=== PATIENT | male | born 1970 | race Caucasian/White ===

== ENCOUNTER 2019-07-09 09:36 | Inpatient (IN) | payer OTHER ==
[2019-07-09 10:15] VITALS: BMI 25.2
--- NOTE | 2019-07-09 10:59 | HP ---
COWS - Scale Resting Pulse: 0= [place] 80 or Below Sweatin= Chills/Flushing Restless Observation: 1= Difficult to Sit Still Pupil Size: 1= Pupils >than Normal Bone or Joint Aches: 2= Severe Diffuse Aches Runny Nose/ Eye Tearin= Runny Nose/Eyes GI Upset > 30mins: 3= Vomiting/Diarrhea Tremor Observation: 2= Slight Tremor Visible Yawning Observation: 2= >3x During Session Anxiety or Irritability: 2=Irritable/Anxious Goose Flesh Skin: 0=Smooth Skin COWS Score: 16 CIWA Score Nausea/Vomitin Muscle Tremors: 3 Anxiety: 3 Agitation: 3 Paroxysmal Sweats: 1-Minimal Palms Moist Orientation: 0-Oriented Tacttile Disturbances: 1-Very Mild Itch/Numbness Auditory Disturbances: 0-None Visual Disturbances: 0-None Headache: 2-Mild CIWA-Ar Total Score: 15 - Admission Criteria OASAS Guidelines: Admission for Medically Managed Detox: Requires at least one of the followin. CIWA greater than 12 2. Seizures within the past 24 hours 3. Delirium tremens within the past 24 hours 4. Hallucinations within the past 24 hours 5. Acute intervention needed for co occurring medical disorder 6. Acute intervention needed for co occurring psychiatric disorder 7. Severe withdrawal that cannot be handled at a lower level of care (continued vomiting, continued diarrhea, abnormal vital signs) requiring intravenous medication and/or fluids 8. Admitting History and Physical - Admission Chief Complaint: i need help to stop using heoin and cocaine and alcohol History of Present Illness: this 49 years old male with heroin and cocaine dependence,seeking help,detox from heroin and cocaine,withdrawal symptom,alcohol dependence, syncope alcohol related denied seizure homeless nicotine dependence weight loss dehydration longest sobriety 10 years last detox in 2018 ,did not recall the facility anxiety,depression,insomnia pain in left hip 2 months,has been walking with cane History Source: Patient Limitations to Obtaining History: No Limitations - Past Medical History 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 Psych: Yes: Anxiety, Depression Musculoskeletal: Yes: Other (pain in left hip ambulation with cane) - Smoking History Smoking history: Current every day smoker Have you smoked in the past 12 months: Yes Aproximately how many cigarettes per day: 40 - Alcohol/Substance Use Hx Alcohol Use: Yes History of Substance Use: reports: Cocaine, Heroin - Social History Usual Living Arrangement: Yes: Other (homeless) ADL: Support Services Occupation: disability History of Recent Travel: No Admission ROS [facility] - [facility] Chief Complaint: i need help to stop using heroin,alcohol,cocaine Allergies/Adverse Reactions: Allergies Allergy/AdvReac Type Severity Reaction Status Date / Time No Known Allergies Allergy Verified 07/09/19 10:06 History of Present Illness: this 49 years old with heroin,cocaine,alcohol dependence seeking detox, withdrawal symptom, last detox in 2018 unknown facility weight loss nicotine dependence pain in the left hip ambulation with cane longest sobriety 10 years homeless anxiety,depression,insomnia may go to rehab after detox Exam Limitations: No Limitations - Ebola screening Have you traveled outside of the country in the last 21 days: No Have you had contact with anyone from an Ebola affected area: No Do you have a fever: No - Review of Systems Constitutional: Chills, Loss of Appetite, Malaise, Night Sweats, Changes in sleep, Weakness, Unintentional Wgt. Loss EENT: reports: Tearing, Nose Congestion Respiratory: reports: No Symptoms reported Cardiac: reports: No Symptoms Reported GI: reports: Diarrhea, Nausea, Poor Appetite, Vomiting, Abdominal cramping : reports: No Symptoms Reported Musculoskeletal: reports: No Symptoms Reported, Back Pain, Gout, Joint Pain Integumentary: reports: Dryness Neuro: reports: Headache, Tremors Endocrine: reports: No Symptoms Reported Hematology: reports: No Symptoms Reported Psychiatric: reports: No Sypmtoms Reported, Judgement Intact, Mood/Affect Appropiate, Orientated x3, Agitated, Depressed Other Systems: Reviewed and Negative Patient History - Patient Medical History Hx Anemia: No Hx Asthma: No Hx Chronic Obstructive Pulmonary Disease (COPD): No Hx Cancer: No Hx Cardiac Disorders: No Hx Congestive Heart Failure: No Hx Hypertension: No Hx Hypercholesterolemia: No Hx Pacemaker: No HX Cerebrovascular Accident: No Hx Seizures: No Hx Dementia: No Hx Diabetes: No Hx Gastrointestinal Disorders: No Hx Liver Disease: No Hx Genitourinary Disorders: No Hx Sexually Transmitted Disorders: No Hx Renal Disease (ESRD): No Hx Thyroid Disease: No Hx Human Immunodeficiency Virus (HIV): No (last 05/26 negative) Hx Hepatitis C: No Hx Depression: Yes (anxiety) Hx Suicide Attempt: No Hx Bipolar Disorder: No Hx Schizophrenia: No Other Medical History: no sucidal,no homicidal - Patient Surgical History Past Surgical History: No - PPD History Previous Implant?: Yes Documented Results: Negative w/o proof Implanted On Prior [facility] Admission?: No PPD to be Administered?: Yes - Smoking Cessation Smoking history: Current every day smoker Have you smoked in the past 12 months: Yes Aproximately how many cigarettes per day: 40 Cigars Per Day: 0 Hx Chewing Tobacco Use: No Initiated information on smoking cessation: Yes 'Breaking Loose' booklet given: 07/09/19 - Substance & Tx. History Hx Alcohol Use: Yes Hx Substance Use: Yes Substance Use Type: Alcohol, Cocaine, Heroin Hx Substance Use Treatment: Yes (2018 did not recall facility) - Substances abused Alcohol Substance route: Oral Frequency: Daily Amount used: 1 pint of bacardi Age of first use: 13 Date of last use: 07/07/19 Heroin Substance route: Injection Frequency: Daily Amount used: 2 1/2 bundle Age of first use: 14 Date of last use: 07/08/19 Cocaine Substance route: Injection Frequency: Daily Amount used: 200$ Age of first use: 13 Date of last use: 07/08/19 Admission Physical Exam S - Vital Signs Vital Signs: Vital Signs - 24 hr 07/09/19 10:06 Temperature 98.9 F Pulse Rate 70 Respiratory 20 Rate Blood Pressure 118/68 - Physical General Appearance: Yes: Moderate Distress, Tremorous, Irritable, Sweating, Anxious HEENTM: Yes: Normal ENT Inspection, PATIENCE, Pharynx Normal Respiratory: Yes: Lungs Clear, Normal Breath Sounds, No Respiratory Distress Neck: Yes: Within Normal Limits, Supple, Trachea in good position Breast: Yes: Breast Exam Deferred Cardiology: Yes: Within Normal Limits, Regular Rhythm, Regular Rate, S1, S2 Abdominal: Yes: Within Normal Limits, Normal Bowel Sounds, Non Tender, Flat, Soft Genitourinary: Yes: Within Normal Limits Back: Yes: Muscle Spasm Musculoskeletal: Yes: full range of Motion, Back pain, Joint Stiffness, Muscle Pain Extremities: Yes: Within Normal Limits, Tremors 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, Fully Oriented, Alert, Motor Strength 5/5 Integumentary: Yes: Dry Lymphatic: Yes: Within Normal Limits - Diagnostic (1) Opioid dependence with withdrawal Current Visit: Yes Status: Acute (2) Alcohol dependence with uncomplicated withdrawal Current Visit: Yes Status: Acute (3) Cocaine dependence Current Visit: Yes Status: Acute (4) IVDU (intravenous drug user) Current Visit: Yes Status: Acute (5) Weight loss Current Visit: Yes Status: Acute (6) Insomnia secondary to depression with anxiety Current Visit: Yes Status: Acute (7) Pain in left hip Current Visit: Yes Status: Acute (8) Use of cane as ambulatory aid Current Visit: Yes Status: Acute (9) Syncope Current Visit: Yes Status: Acute (10) Dehydration Current Visit: Yes Status: Acute Cleared for Admission [facility] - Detox or Rehab [facility] Level of Care: Medically Managed Detox Regimen/Protocol: Methadone/Librium Breathalyzer - Breathalyzer Breathalyzer: 0 Urine Drug Screen - Test Device Lot number: [id number] Expiration date: 02/04/21 - Control Is test valid?: Yes - Results Drug screen NEGATIVE: No Urine drug screen results: JOVANI-Cocaine, MOP-Opiates Inpatient Rehab Admission - Rehab Decision to Admit Inpatient rehab admission?: No
[2019-07-09] MEDS ORDERED: MAG HYDROX/AL HYDROX/SIMETH 30 ML UNIT-DOSE CUP PO PRN (11:14)
[2019-07-09] MEDS ORDERED: BISMUTH SUBSALICYLATE 524 MG/30 ML UD PO PRN (11:14)
[2019-07-09] MEDS ORDERED: MAGNESIUM CITRATE 300 ML BOTTLE PO PRN (11:14)
[2019-07-09] MEDS ORDERED: cloNIDine HCL 0.1 MG TABLET PO PRN (11:14)
[2019-07-09] MEDS ORDERED: MAGNESIUM HYDROX 2400MG/30ML ORAL SUSPENSION 30 ML CUP PO PRN (11:14)
[2019-07-09] MEDS ORDERED: MENTHOL/PHENOL 1 EACH UD MM PRN (11:14)
[2019-07-09] MEDS ORDERED: ACETAMINOPHEN 325 MG TABLET (FP) PO PRN ×2 (11:14)
[2019-07-09] MEDS ORDERED: NICOTINE POLACRILEX 2 MG GUM BUC PRN (11:14)
[2019-07-09] MEDS ORDERED: METHADONE HCL 10 MG TABLET (FOR DETOX USE ONLY) PO ONE (11:14)
[2019-07-09] MEDS ORDERED: hydrOXYzine PAMOATE 25 MG CAPSULE (FP) PO PRN (11:14)
[2019-07-09] MEDS ORDERED: chlordiazePOXIDE HCL 25 MG CAPSULE PO PRN (11:14)
[2019-07-09] MEDS: NICOTINE 21 MG/24 HOURS TOPICAL PATCH TD SCH (12:31)
[2019-07-09 15:00] LABS: HEMOGLOBIN 10.3 GM/dL (11.7-16.9); MCH 28.9 pg (25.7-33.7); MCHC 32.1 g/dl (32.0-35.9); MEAN CELL VOLUME 89.9 fl (80-96); MEAN PLT VOLUME 8.1 fl (7.5-11.1); PLATELET COUNT 329 K/MM3 (134-434); RBC 3.56 M/mm3 (4.00-5.60); RDW 15.2 % (11.9-15.9); WHITE BLOOD COUNT 6.6 K/mm3 (4.0-10.0)
--- NOTE | 2019-07-09 15:14 | EKG ---
Test Reason : Blood Pressure : / mmHG Vent. Rate : 067 BPM Atrial Rate : 067 BPM P-R Int : 200 ms QRS Dur : 094 ms QT Int : 444 ms P-R-T Axes : 059 074 048 degrees QTc Int : 469 ms NORMAL SINUS RHYTHM VOLTAGE CRITERIA FOR LEFT VENTRICULAR HYPERTROPHY T WAVE ABNORMALITY, CONSIDER ANTERIOR ISCHEMIA PROLONGED QT ABNORMAL ECG NO PREVIOUS ECGS AVAILABLE Confirmed by RONALD LEMON MD ([id number]) on 07/09/2019 3:14:30 PM Referred By: Confirmed By:RONALD LEMON MD
[2019-07-09 15:18] LABS: ALBUMIN 2.6 g/dl (3.4-5.0); BILIRUBIN,TOTAL 0.2 mg/dL (0.2-1); CALCIUM 8.5 mg/dL (8.5-10.1); CREATININE 0.8 mg/dL (0.55-1.3); POTASSIUM 3.2 mmol/L (3.5-5.1); TOT PROT 7.2 g/dl (6.4-8.2)
[2019-07-09] MEDS: chlordiazePOXIDE HCL 25 MG CAPSULE PO SCH ×2 (17:20→22:32)
[2019-07-09] MEDS: THIAMINE HCL 100 MG TABLET (FP) PO SCH (22:32)
[2019-07-10] MEDS: chlordiazePOXIDE HCL 25 MG CAPSULE PO SCH ×4 (05:22→22:19)
--- NOTE | 2019-07-10 09:13 | CONSULT ---
[facility] Psychiatric Consult - Data Date of interview: 07/10/19 Admission source: [facility] Identifying data: Patient is a 49 year old single male, without children, unemployed, and homeless. This is patient's first admission to detox at [facility]. Patient admitted to for alcohol, cocaine, and opiate dependence. Substance Abuse History: Smoking Cessation. Smoking history: Current every day smoker. Have you smoked in the past 12 months: Yes. Aproximately how many cigarettes per day: 40. Cigars Per Day: 0. Hx Chewing Tobacco Use: No. Initiated information on smoking cessation: Yes. 'Breaking Loose' booklet given : 07/09/19. - Substance & Tx. History. Hx Alcohol Use: Yes. Hx Substance Use : Yes. Substance Use Type: Alcohol, Cocaine, Heroin. Hx Substance Use Treatment: Yes (2018 did not recall facility). - Substances abused. Alcohol. Substance route: Oral. Frequency: Daily. Amount used: 1 pint of bacardi. Age of first use: 13. Date of last use: 07/07/19. Heroin. Substance route: Injection. Frequency: Daily. Amount used: 2 1/2 bundle. Age of first use: 14. Date of last use: 07/08/19. Cocaine. Substance route: Injection. Frequency: Daily. Amount used: 200$. Age of first use: 13. Date of last use: 07/08/19 Medical History: denies. Psychiatric History: Patient denies history of psychiatric hospitalizations, outpatient care and suicide attempt. Patient presents as lethargic and fatigue throughout assessment. Physical/Sexual Abuse/Trauma History: denies. Mental Status Exam - Mental Status Exam Alert and Oriented to: Time, Place, Person Cognitive Function: Good Patient Appearance: Unkempt Mood: Withdrawn Affect: Mood Congruent Patient Behavior: Fatigued Speech Pattern: Appropriate Voice Loudness: Mildly Soft/Quiet Thought Process: Goal Oriented Thought Disorder: Not Present Hallucinations: Denies Suicidal Ideation: Denies Homicidal Ideation: Denies Insight/Judgement: Poor Sleep: Poorly Appetite: Fair Muscle strength/Tone: Normal Gait/Station: Normal Psychiatric Findings - Problem List ([place] 1, 2,3) (1) Alcohol dependence with uncomplicated withdrawal Current Visit: Yes Status: Acute (2) Cocaine dependence Current Visit: Yes Status: Acute (3) Opioid dependence with withdrawal Current Visit: Yes Status: Acute (4) Substance induced mood disorder Current Visit: No Status: Suspected - Initial Treatment Plan Initial Treatment Plan: Psychoeducation provided. Detoxification in progress. Observation.
[2019-07-10] MEDS ORDERED: METHADONE HCL 5 MG TABLET (FOR DETOX USE ONLY) ONE (09:17)
[2019-07-10] MEDS ORDERED: METHADONE HCL 10 MG TABLET (FOR DETOX USE ONLY) ONE (09:18)
[2019-07-10] MEDS ORDERED: METHADONE (DETOX) 20 MG, METHADONE (DETOX) 5 MG PO ONE (10:00)
[2019-07-10] MEDS: PRENATAL VITAMINS W/ FOLIC ACID TABLET (FP) PO SCH (11:00)
[2019-07-10] MEDS: NICOTINE 21 MG/24 HOURS TOPICAL PATCH TD SCH (11:02)
[2019-07-10] MEDS ORDERED: FLU VACCINE QUAD 60 MCG/0.5 ML (MDV 19-20) IM ONE (12:00)
--- NOTE | 2019-07-10 14:31 | PN ---
S CIWA - CIWA Score Nausea/Vomitin-Mild Nausea/No Vomiting Muscle Tremors: 2 Anxiety: 2 Agitation: 1-Slight > Activity Paroxysmal Sweats: 3 Orientation: 0-Oriented Tacttile Disturbances: 2-Mild Itch/Numbness/Burn Auditory Disturbances: 0-None Visual Disturbances: 0-None Headache: 0-None Present CIWA-Ar Total Score: 11 BHS COWS - Scale Resting Pulse: 0= [place] 80 or Below Sweatin=Flushed/Facial Moisture Restless Observation: 1= Difficult to Sit Still Pupil Size: 1= Pupils >than Normal Bone or Joint Aches: 2= Severe Diffuse Aches Runny Nose/ Eye Tearin= None GI Upset > 30mins: 0= None Tremor Observation of Outstretched Hands: 2= Slight Tremor Visible Yawning Observation: 0= None Anxiety or Irritability: 1=Feels Anxious/Irritable Goose Flesh Skin: 0=Smooth Skin COWS Score: 9 S Progress Note (SOAP) Subjective: interrupted sleep, sweats, shakes, lbp, Objective: 07/10/19 14:24 pt aox3 lying in bed uses a cane to ambulate 07/10/19 14:24 Vital Signs Temperature 98.6 F 07/10/19 09:26 Pulse Rate 78 07/10/19 09:26 Respiratory Rate 18 07/10/19 09:26 Blood Pressure 123/78 07/10/19 09:26 O2 Sat by Pulse Oximetry (%) Laboratory Tests 07/09/19 07/09/19 07/09/19 11:20 11:20 11:20 WBC 6.6 RBC 3.56 L Hgb 10.3 L Hct 32.0 L MCV 89.9 MCH 28.9 MCHC 32.1 RDW 15.2 Plt Count 329 MPV 8.1 Sickle Cell Screen Sodium 143 Potassium 3.2 L Chloride 109 H Carbon Dioxide 29 Anion Gap 5 L BUN 17.0 Creatinine 0.8 Est GFR (CKD-EPI)AfAm 119.88 Est GFR (CKD-EPI)NonAf 103.43 Random Glucose 123 H Calcium 8.5 Total Bilirubin 0.2 AST 15 ALT 18 Alkaline Phosphatase 116 Total Protein 7.2 Albumin 2.6 L RPR Titer HIV 1&2 Antibody Screen Negative HIV P24 Antigen Negative 07/09/19 07/09/19 11:20 11:20 WBC RBC Hgb Hct MCV MCH MCHC RDW Plt Count MPV Sickle Cell Screen Negative Sodium Potassium Chloride Carbon Dioxide Anion Gap BUN Creatinine Est GFR (CKD-EPI)AfAm Est GFR (CKD-EPI)NonAf Random Glucose Calcium Total Bilirubin AST ALT Alkaline Phosphatase Total Protein Albumin RPR Titer Nonreactive HIV 1&2 Antibody Screen HIV P24 Antigen pt aox3 in nad, lying in bed Assessment: 07/10/19 14:36 withdrawal sx's Plan: cont. detox increrase fluids motrin prn
[2019-07-10] MEDS: THIAMINE HCL 100 MG TABLET (FP) PO SCH (22:19)
[2019-07-10] MEDS: MELATONIN 5 MG TABLETS PO PRN (22:20)
[2019-07-11] MEDS: chlordiazePOXIDE HCL 25 MG CAPSULE PO SCH ×4 (07:05→23:59)
[2019-07-11] MEDS ORDERED: METHADONE HCL 10 MG TABLET (FOR DETOX USE ONLY) PO ONE (10:00)
--- NOTE | 2019-07-11 10:57 | PN ---
[facility] CIWA - CIWA Score Nausea/Vomitin-Mild Nausea/No Vomiting Muscle Tremors: 4-Moderate,w/Arms Extend Anxiety: 2 Agitation: 2 Paroxysmal Sweats: 1-Minimal Palms Moist Orientation: 0-Oriented Tacttile Disturbances: 0-None Auditory Disturbances: 0-None Visual Disturbances: 0-None Headache: 1-Very Mild CIWA-Ar Total Score: 11 BHS COWS - Scale Resting Pulse: 1= [place] 81-100 Sweatin= Chills/Flushing Restless Observation: 1= Difficult to Sit Still Pupil Size: 1= Pupils >than Normal Bone or Joint Aches: 1= Mild Discomfort Runny Nose/ Eye Tearin= Nasal Congestion GI Upset > 30mins: 1= Stomach Cramp Tremor Observation of Outstretched Hands: 1= Tremor [place], Not Seen Yawning Observation: 1= 1-2x During Session Anxiety or Irritability: 1=Feels Anxious/Irritable Goose Flesh Skin: 0=Smooth Skin COWS Score: 10 [facility] Progress Note (SOAP) Subjective: pt states he feels like he is in withdrawal- here for heroin and cocaine and alcohol use O: Vital Signs - 24 hr 07/10/19 07/10/19 07/11/19 17:22 21:45 03:37 Temperature 97.9 F 98.1 F Pulse Rate 73 84 Respiratory 18 18 18 Rate Blood Pressure 131/71 123/72 07/11/19 07/11/19 07:14 09:54 Temperature 97.9 F 99.1 F Pulse Rate 51 L 74 Respiratory 18 16 Rate Blood Pressure 121/71 104/59 L Laboratory Tests 07/09/19 07/09/19 07/09/19 11:20 11:20 11:20 WBC 6.6 RBC 3.56 L Hgb 10.3 L Hct 32.0 L MCV 89.9 MCH 28.9 MCHC 32.1 RDW 15.2 Plt Count 329 MPV 8.1 Sickle Cell Screen Sodium 143 Potassium 3.2 L Chloride 109 H Carbon Dioxide 29 Anion Gap 5 L BUN 17.0 Creatinine 0.8 Est GFR (CKD-EPI)AfAm 119.88 Est GFR (CKD-EPI)NonAf 103.43 Random Glucose 123 H Calcium 8.5 Total Bilirubin 0.2 AST 15 ALT 18 Alkaline Phosphatase 116 Total Protein 7.2 Albumin 2.6 L RPR Titer HIV 1&2 Antibody Screen Negative HIV P24 Antigen Negative 07/09/19 07/09/19 11:20 11:20 WBC RBC Hgb Hct MCV MCH MCHC RDW Plt Count MPV Sickle Cell Screen Negative Sodium Potassium Chloride Carbon Dioxide Anion Gap BUN Creatinine Est GFR (CKD-EPI)AfAm Est GFR (CKD-EPI)NonAf Random Glucose Calcium Total Bilirubin AST ALT Alkaline Phosphatase Total Protein Albumin RPR Titer Nonreactive HIV 1&2 Antibody Screen HIV P24 Antigen anemia- Hct 32 low albumin A/P: AUD- continue alcohol detox protocol prn meds for symptom treatment
[2019-07-11] MEDS: PRENATAL VITAMINS W/ FOLIC ACID TABLET (FP) PO SCH (11:06)
[2019-07-11] MEDS: NICOTINE 21 MG/24 HOURS TOPICAL PATCH TD SCH (11:07)
[2019-07-11] MEDS: THIAMINE HCL 100 MG TABLET (FP) PO SCH (23:40)
[2019-07-12] MEDS ORDERED: chlordiazePOXIDE HCL 10 MG CAPSULE PO PRN
[2019-07-12] MEDS: chlordiazePOXIDE HCL 10 MG CAPSULE PO SCH ×4 (06:31→22:50)
[2019-07-12] MEDS: IBUPROFEN 400 MG TABLET (FP) PO PRN (06:34)
[2019-07-12] MEDS: METHOCARBAMOL 500 MG TABLET PO PRN (06:34)
[2019-07-12] MEDS ORDERED: METHADONE HCL 10 MG TABLET (FOR DETOX USE ONLY) ONE (09:07)
[2019-07-12] MEDS ORDERED: METHADONE HCL 5 MG TABLET (FOR DETOX USE ONLY) ONE (09:07)
[2019-07-12] MEDS ORDERED: METHADONE (DETOX) 10 MG, METHADONE (DETOX) 5 MG PO ONE (10:00)
[2019-07-12] MEDS: PRENATAL VITAMINS W/ FOLIC ACID TABLET (FP) PO SCH (10:05)
[2019-07-12] MEDS: NICOTINE 21 MG/24 HOURS TOPICAL PATCH TD SCH (10:05)
--- NOTE | 2019-07-12 13:17 | PN ---
S CIWA - CIWA Score Nausea/Vomitin-No Nausea/No Vomiting Muscle Tremors: 2 Anxiety: 2 Agitation: 1-Slight > Activity Paroxysmal Sweats: 2 Orientation: 0-Oriented Tacttile Disturbances: 0-None Auditory Disturbances: 0-None Visual Disturbances: 0-None Headache: 0-None Present CIWA-Ar Total Score: 7 BHS COWS - Scale Resting Pulse: 0= [place] 80 or Below Sweatin= Chills/Flushing Restless Observation: 0= Sits Still Pupil Size: 0= Normal to Room Light Bone or Joint Aches: 1= Mild Discomfort Runny Nose/ Eye Tearin= Runny Nose/Eyes GI Upset > 30mins: 0= None Tremor Observation of Outstretched Hands: 2= Slight Tremor Visible Yawning Observation: 0= None Anxiety or Irritability: 1=Feels Anxious/Irritable Goose Flesh Skin: 0=Smooth Skin COWS Score: 7 S Progress Note (SOAP) Subjective: Tremor, stomachache, sweating, interrupted sleep Objective: 07/12/19 13:09 Last Vital Signs Temp Pulse Resp BP Pulse Ox 97 F L 76 16 100/62 07/12/19 08:53 07/12/19 08:53 07/12/19 08:53 07/12/19 08:53 Laboratory Tests 07/09/19 07/09/19 07/09/19 11:20 11:20 11:20 WBC 6.6 RBC 3.56 L Hgb 10.3 L Hct 32.0 L MCV 89.9 MCH 28.9 MCHC 32.1 RDW 15.2 Plt Count 329 MPV 8.1 Sickle Cell Screen Sodium 143 Potassium 3.2 L Chloride 109 H Carbon Dioxide 29 Anion Gap 5 L BUN 17.0 Creatinine 0.8 Est GFR (CKD-EPI)AfAm 119.88 Est GFR (CKD-EPI)NonAf 103.43 Random Glucose 123 H Calcium 8.5 Total Bilirubin 0.2 AST 15 ALT 18 Alkaline Phosphatase 116 Total Protein 7.2 Albumin 2.6 L RPR Titer HIV 1&2 Antibody Screen Negative HIV P24 Antigen Negative 07/09/19 07/09/19 11:20 11:20 WBC RBC Hgb Hct MCV MCH MCHC RDW Plt Count MPV Sickle Cell Screen Negative Sodium Potassium Chloride Carbon Dioxide Anion Gap BUN Creatinine Est GFR (CKD-EPI)AfAm Est GFR (CKD-EPI)NonAf Random Glucose Calcium Total Bilirubin AST ALT Alkaline Phosphatase Total Protein Albumin RPR Titer Nonreactive HIV 1&2 Antibody Screen HIV P24 Antigen Labs reviewed: noted with anemia, hypokalemia and hyperglycemia Assessment: 07/12/19 13:17 Withdrawal sxs Noted with anemia, hypokalemia and hyperglycemia Plan: Continue detox Encouraged PO water intake Anemia: send iron studies Hypokalemia: K Dur 40 Meq PO x 2 doses, repeat serum K level Hyperglycemia: denies DM, repeat fasting glucose, send A1c
[2019-07-12] MEDS ORDERED: POTASSIUM CHLORIDE TABS 20 MEQ TABLET.ER (FP) PO ONE ×2 (13:41→20:00)
[2019-07-12] MEDS: THIAMINE HCL 100 MG TABLET (FP) PO SCH (22:50)
[2019-07-13] MEDS: chlordiazePOXIDE HCL 10 MG CAPSULE PO SCH ×2 (07:03→18:42)
[2019-07-13] MEDS ORDERED: METHADONE HCL 10 MG TABLET (FOR DETOX USE ONLY) PO ONE (10:00)
--- NOTE | 2019-07-13 10:21 | PN ---
[facility] CIWA - CIWA Score Nausea/Vomitin-Mild Nausea/No Vomiting Muscle Tremors: 1-None Visible, but [place] Anxiety: 1-Mildly Anxious Agitation: 1-Slight > Activity Paroxysmal Sweats: No Perspiration Orientation: 0-Oriented Tacttile Disturbances: 1-Very Mild Itch/Numbness Auditory Disturbances: 0-None Visual Disturbances: 0-None Headache: 1-Very Mild CIWA-Ar Total Score: 6 BHS COWS - Scale Resting Pulse: 0= [place] 80 or Below Sweatin= No chills or Flushing Restless Observation: 1= Difficult to Sit Still Pupil Size: 1= Pupils >than Normal Bone or Joint Aches: 2= Severe Diffuse Aches Runny Nose/ Eye Tearin= None GI Upset > 30mins: 1= Stomach Cramp Tremor Observation of Outstretched Hands: 1= Tremor [place], Not Seen Yawning Observation: 1= 1-2x During Session Anxiety or Irritability: 2=Irritable/Anxious Goose Flesh Skin: 0=Smooth Skin COWS Score: 9 [facility] Progress Note (SOAP) Subjective: alert,irritable,anxious,interrupted sleep,tremor,pain in the body,left hip, ambulation with cane Objective: 07/13/19 10:20 Vital Signs Temperature 99.1 F 07/13/19 09:16 Pulse Rate 79 07/13/19 09:16 Respiratory Rate 19 07/13/19 09:16 Blood Pressure 113/75 07/13/19 09:16 O2 Sat by Pulse Oximetry (%) Assessment: 07/13/19 10:21 withdrawla symptom Plan: continue detox,methadone and librium regimen,discharge in am
[2019-07-13 10:30] LABS: POTASSIUM 4.3 mmol/L (3.5-5.1)
[2019-07-13] MEDS: NICOTINE 21 MG/24 HOURS TOPICAL PATCH TD SCH (11:18)
[2019-07-13] MEDS: PRENATAL VITAMINS W/ FOLIC ACID TABLET (FP) PO SCH (11:18)
[2019-07-13] MEDS: METHOCARBAMOL 500 MG TABLET PO PRN (11:19)
[2019-07-13] MEDS: IBUPROFEN 400 MG TABLET (FP) PO PRN (11:19)
[2019-07-13] MEDS: THIAMINE HCL 100 MG TABLET (FP) PO SCH (22:03)
[2019-07-13] MEDS: MELATONIN 5 MG TABLETS PO PRN (23:20)
[2019-07-14] MEDS: IBUPROFEN 400 MG TABLET (FP) PO PRN (00:33)
[2019-07-14] MEDS: METHOCARBAMOL 500 MG TABLET PO PRN (00:34)
[2019-07-14] MEDS ORDERED: chlordiazePOXIDE HCL 10 MG CAPSULE PO ONE (05:00)
[2019-07-14] MEDS ORDERED: METHADONE HCL 5 MG TABLET (FOR DETOX USE ONLY) PO ONE (06:00)
[2019-07-14 06:19] VITALS: BP 106/65; PULSE 70; TEMP 97.7
--- NOTE | 2019-07-14 09:42 | DS ---
[facility] Detox Discharge Summary Admission Date: 07/09/19 Discharge Date: 07/14/19 - History Present History: Alcohol Dependence, Cocaine Dependence, Opioid Dependence - Physical Exam Results Vital Signs: Vital Signs Temperature 97.7 F 07/14/19 06:18 Pulse Rate 70 07/14/19 06:18 Respiratory Rate 16 07/14/19 06:18 Blood Pressure 106/65 07/14/19 06:18 O2 Sat by Pulse Oximetry (%) Pertinent Admission Physical Exam Findings: Vital Signs Temperature 97.7 F 07/14/19 06:18 Pulse Rate 70 07/14/19 06:18 Respiratory Rate 16 07/14/19 06:18 Blood Pressure 106/65 07/14/19 06:18 O2 Sat by Pulse Oximetry (%) Laboratory Tests 07/09/19 07/09/19 07/09/19 11:20 11:20 11:20 WBC 6.6 RBC 3.56 L Hgb 10.3 L Hct 32.0 L MCV 89.9 MCH 28.9 MCHC 32.1 RDW 15.2 Plt Count 329 MPV 8.1 Sickle Cell Screen Sodium 143 Potassium 3.2 L Chloride 109 H Carbon Dioxide 29 Anion Gap 5 L BUN 17.0 Creatinine 0.8 Est GFR (CKD-EPI)AfAm 119.88 Est GFR (CKD-EPI)NonAf 103.43 Random Glucose 123 H Fasting Glucose Hemoglobin A1c % Calcium 8.5 Iron TIBC Iron Saturation Unsaturated IBC Ferritin Total Bilirubin 0.2 AST 15 ALT 18 Alkaline Phosphatase 116 Total Protein 7.2 Albumin 2.6 L Vitamin B12 Serum Folate RPR Titer HIV 1&2 Antibody Screen Negative HIV P24 Antigen Negative 07/09/19 07/09/19 07/13/19 11:20 11:20 08:15 WBC RBC Hgb Hct MCV MCH MCHC RDW Plt Count MPV Sickle Cell Screen Negative Sodium Potassium Chloride Carbon Dioxide Anion Gap BUN Creatinine Est GFR (CKD-EPI)AfAm Est GFR (CKD-EPI)NonAf Random Glucose Fasting Glucose Hemoglobin A1c % 6.5 H Calcium Iron TIBC Iron Saturation Unsaturated IBC Ferritin Total Bilirubin AST ALT Alkaline Phosphatase Total Protein Albumin Vitamin B12 Serum Folate RPR Titer Nonreactive HIV 1&2 Antibody Screen HIV P24 Antigen 07/13/19 08:15 WBC RBC Hgb Hct MCV MCH MCHC RDW Plt Count MPV Sickle Cell Screen Sodium Potassium 4.3 Chloride Carbon Dioxide Anion Gap BUN Creatinine Est GFR (CKD-EPI)AfAm Est GFR (CKD-EPI)NonAf Random Glucose Fasting Glucose 111 H Hemoglobin A1c % Calcium Iron 43 L TIBC 269 Iron Saturation 15 L Unsaturated IBC 226 Ferritin 156.3 Total Bilirubin AST ALT Alkaline Phosphatase Total Protein Albumin Vitamin B12 519 Serum Folate 13 RPR Titer HIV 1&2 Antibody Screen HIV P24 Antigen aaox3 ambulating no acute distress - Treatment Hospital Course: Detox Protocol Followed, Detoxed Safely, Responded well, Discharged Condition Good, Rehab Referral Accepted Patient has Accepted a Rehab Referral to: referred to [facility] inpatient rehab - Medication Discharge Medications: Ambulatory Orders NK [No Known Home Medication] 07/09/19 - Diagnosis (1) Alcohol dependence with uncomplicated withdrawal Current Visit: Yes Status: Chronic (2) Cocaine dependence Current Visit: Yes Status: Chronic Qualifiers: Substance use status: uncomplicated Qualified Code(s): F14.20 - Cocaine dependence, uncomplicated (3) IVDU (intravenous drug user) Current Visit: Yes Status: Acute (4) Insomnia secondary to depression with anxiety Current Visit: Yes Status: Acute (5) Opioid dependence with withdrawal Current Visit: Yes Status: Chronic (6) Pain in left hip Current Visit: Yes Status: Acute (7) Syncope Current Visit: Yes Status: Acute (8) Use of cane as ambulatory aid Current Visit: Yes Status: Acute (9) Weight loss Current Visit: Yes Status: Acute (10) Substance induced mood disorder Current Visit: No Status: Suspected - AMA Did Patient Leave Against Medical Advice: No
== END 2019-07-14 08:50 | disposition home or self-care (01) | DRG 773 ==
LOC: YASAS 09:36 → Y6N 11:09
PROVIDERS: ADMIT Allergy & Immunology; ATTEND Allergy & Immunology
PROC: HZ2ZZZZ Detoxification Services for Substance Abuse Treatment (ICD-10-PCS; principal; 2019-07-09)
DX: F11.23 Opioid dependence with withdrawal (principal); F10.230 Alcohol dependence with withdrawal, uncomplicated; F14.20 Cocaine dependence, uncomplicated; F17.210 Nicotine dependence, cigarettes, uncomplicated; F19.24 Other psychoactive substance dependence with psychoactive substance-induced mood disorder; F51.05 Insomnia due to other mental disorder; E86.0 Dehydration; M25.552 Pain in left hip; D64.9 Anemia, unspecified; E87.6 Hypokalemia; R73.9 Hyperglycemia, unspecified; R77.0 Abnormality of albumin; R63.4 Abnormal weight loss; R26.2 Difficulty in walking, not elsewhere classified; Z99.89 Dependence on other enabling machines and devices
CPT/HCPCS: 36415; 80053; 82607; 82728; 82746; 82947; 83036; 83540; 83550; 84132; 85027; 85660; 86593; 87389; 93005; 93010

== ENCOUNTER 2019-08-03 16:22 | Inpatient (IN) | payer OTHER ==
--- NOTE | 2019-08-03 16:43 | PDOC ---
Rapid Medical Evaluation Time Seen by Provider: 08/03/19 16:38 Medical Evaluation: Allergies Allergy/AdvReac Type Severity Reaction Status Date / Time No Known Allergies Allergy Verified 07/09/19 10:06 08/03/19 16:39 Pt c/o: abscess to arm , ivda, denies hiv, sent from [facility] for med eval, denies med hx Pt on brief exam: noted localized raised mass to inner right forearm, currently used heroin today pt ordered for: labs, iv, iv abx, and u/s Pt to proceed to the ED Discharge Disposition - Diagnosis Fever, IVDU (intravenous drug user) - Discharge Dispostion Disposition: HOME Condition at time of disposition: Stable - Referrals - Patient Instructions - Post Discharge Activity
[2019-08-03] MEDS ORDERED: ACETAMINOPHEN 1000 MG/100 ML VIAL (NON FORMULARY) IVPB ONE (16:44)
[2019-08-03] MEDS ORDERED: SODIUM CHLORIDE 1,000 ML IV STA (16:44)
[2019-08-03] MEDS ORDERED: VANCOMYCIN 1,000 MG in DEXTROSE 5%-WATER - 250 ML IVPB ONE (16:45)
[2019-08-03] MEDS ORDERED: PIPERACILLIN/TAZOB 3.375 GM 3.375 GM in DEXTROSE 5%-WATER - 50 ML IVPB SCH (16:45)
--- NOTE | 2019-08-03 17:12 | PDOC ---
Attending Attestation - Resident Resident Name: Lio Castaneda - HPI HPI: 08/03/19 17:58 Pt presents to the ED after set in from [facility] for fever. Patient denies complaints and did not realize that he was febrile until his temperature was taken at [facility]. History of IVDA, last use this AM. Denies chest pain or shortness of breath, nausea or vomiting. Denies pain. - Physicial Exam PE: 08/03/19 18:04 Agree with resident exam. Patient is alert and oriented x 3. HEENT: normocephalic, atraumatic. CV: rrr no m/r/g Pulm: CTA b/l Abdomen: soft, NT, ND ext: RUE + induration without cellulitis or abscess. - Medical Decision Making 08/03/19 18:06 Agree with resident exam. Patient is alert and oriented x 3 and in no
--- NOTE | 2019-08-03 17:29 | PDOC ---
History of Present Illness - General Chief Complaint: SIRS, Suspected/Possible Stated Complaint: FEVER` Time Seen by Provider: 08/03/19 16:38 - History of Present Illness Initial Comments: 49 year old male with PMH of IVDU (most recent use earlier today) presenting with isolated fever. He was being triaged at [facility] and was found to be febrile so he was sent to our ED for evaluation. Denies any cough, nausea, vomiting, diarrhea, chest pain, palpitations, syncope, headache, or other symptoms. 08/03/19 17:24 Past History - Past Medical History Allergies/Adverse Reactions: Allergies Allergy/AdvReac Type Severity Reaction Status Date / Time No Known Allergies Allergy Verified 07/09/19 10:06 Home Medications: Ambulatory Orders NK [No Known Home Medication] 07/09/19 Anemia: No Asthma: No Cancer: No Cardiac Disorders: No CVA: No COPD: No CHF: No Dementia: No Diabetes: No GI Disorders: No Disorders: No HTN: No Hypercholesterolemia: No Kidney Stones: No Liver Disease: No Seizures: No Thyroid Disease: No Other medical history: substance abuse - Reproductive History Testicular Surgery: No - Immunization History Immunization Up to Date: No - Psycho Social/Smoking Cessation Hx Smoking History: Never smoked Have you smoked in the past 12 months: No Number of Cigarettes Smoked Daily: 40 Cigars Per Day: 0 Information on smoking cessation initiated: No 'Breaking Loose' booklet given: 07/09/19 Hx Alcohol Use: No Drug/Substance Use Hx: No Substance Use Type: Alcohol, Cocaine, Heroin Hx Substance Use Treatment: Yes (2018 did not recall facility) Review of Systems - Review of Systems Constitutional: Yes: Fever. No: Chills, Diaphoresis, Loss of Appetite, Malaise , Night Sweats, Weakness HEENTM: No: Eye Pain, Blurred Vision, Tearing Respiratory: No: Cough, Orthopnea, Shortness of Breath Cardiac (ROS): No: Chest Pain, Edema, Irregular Heart Rate ABD/GI: No: Constipated, Diarrhea, Nausea, Vomiting : No: Dysuria, Discharge, Frequency Musculoskeletal: No: Back Pain, Joint Pain, Joint Swelling Neurological: No: Headache, Numbness, Paresthesia Psychiatric: No: Anxiety, Depression Hematologic/Lymphatic: No: Anemia, Blood Clots, Easy Bleeding *Physical Exam - Vital Signs Last Vital Signs Temp Pulse Resp BP Pulse Ox 102.0 F H 82 16 123/63 98 08/03/19 16:42 08/03/19 16:42 08/03/19 16:42 08/03/19 16:42 08/03/19 16:42 - Physical Exam General Appearance: Yes: Nourished, Appropriately Dressed. No: Apparent Distress HEENT: positive: EOMI, PATIENCE, Normal ENT Inspection, Normal Voice Neck: positive: Trachea midline, Normal Thyroid, Supple. negative: Tender, Rigid Respiratory/Chest: positive: Lungs Clear, Normal Breath Sounds. negative: Chest Tender, Respiratory Distress, Accessory Muscle Use Cardiovascular: positive: Regular Rhythm, Regular Rate. negative: Murmur Gastrointestinal/Abdominal: positive: Normal Bowel Sounds, Flat, Soft. negative : Tender Lymphatic: negative: Adenopathy, Tenderness Musculoskeletal: positive: Normal Inspection. negative: Decreased Range of Motion Extremity: positive: Normal Capillary Refill, Normal Inspection, Normal Range of Motion. negative: Tender Integumentary: positive: Normal Color, Dry, Warm, Other (a few scarred injection sites with one recently injected site in his right mid forearm without flucutance, erythema, or concern for infection.) ED Treatment Course - LABORATORY CBC & Chemistry Diagram: 08/04/19 06:40 08/04/19 06:27 Medical Decision Making - Medical Decision Making 49 year old active IVDU with most recent use today presenting with fevers. Has a right arm lesion of a previous injection site but not concerning for a large abscess as most edema is subcutaneous and doesn't seem to be a discrete pocket of infection. Highest concern is for bacterial endocarditis. No murmur on cardiac auscultation and no other signs of splinter hemorrhages etc. Labs WNL and patient admitted to medicine for further workup. 08/03/19 17:34 Discharge - Discharge Information Problems reviewed: Yes Clinical Impression/Diagnosis: IVDU (intravenous drug user) Fever Qualifiers: Fever type: due to other condition Qualified Code(s): R50.81 - Fever presenting with conditions classified elsewhere Condition: Stable - Admission Yes - Follow up/Referral - Patient Discharge Instructions - Post Discharge Activity
[2019-08-03] MEDS ORDERED: ACETAMINOPHEN INJECTION 100 ML IVPB ONE (17:32)
[2019-08-03] MEDS ORDERED: PIPERACILLIN/TAZOB 3.375 GM 3.375 GM/50 ML BAG IVPB ONE (17:32)
[2019-08-03] MEDS ORDERED: VANCOMYCIN 1 GRAM (PRE-DOCKED) 1,000 MG/250 ML BAG IVPB ONE (17:32)
[2019-08-03 17:45] LABS: BASO % 0.5 % (0-2.0); EOS % 1.3 % (0-4.5); HEMATOCRIT 34.2 % (35.4-49); HEMOGLOBIN 11.1 GM/dL (11.7-16.9); LYMPH % 17.7 % (8-40); MCH 29.2 pg (25.7-33.7); MCHC 32.4 g/dl (32.0-35.9); MEAN CELL VOLUME 90.1 fl (80-96); MONO % 9.1 % (3.8-10.2); NEUT % 71.4 % (42.8-82.8); PLATELET COUNT 277 K/MM3 (134-434); RBC 3.79 M/mm3 (4.00-5.60); RDW 17.3 % (11.9-15.9)
[2019-08-03 18:19] LABS: ALBUMIN 3.2 g/dl (3.4-5.0); BILIRUBIN,TOTAL 0.5 mg/dL (0.2-1); BLOOD UREA NITROGEN 9.8 mg/dL (7-18); CALCIUM 8.5 mg/dL (8.5-10.1); CREATININE 0.8 mg/dL (0.55-1.3); POTASSIUM 3.9 mmol/L (3.5-5.1); TOT PROT 7.3 g/dl (6.4-8.2)
--- NOTE | 2019-08-03 20:25 | HP ---
Admitting History and Physical - Primary Care Physician PCP: Cy Blue - Admission History of Present Illness: 49 year old male with PMH of IVDU (most recent use earlier today) presenting with isolated fever. He was being triaged at [facility] and was found to be febrile so he was sent to our ED for evaluation. Denies any cough, nausea, vomiting, diarrhea, chest pain, palpitations, syncope, headache, or other symptoms. 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 Psych: Yes: Anxiety, Depression Musculoskeletal: Yes: Other (pain in left hip ambulation with cane) - Smoking History Smoking history: Never smoked Have you smoked in the past 12 months: No Aproximately how many cigarettes per day: 40 - Alcohol/Substance Use Hx Alcohol Use: No History of Substance Use: reports: Cocaine, Heroin - Social History ADL: Support Services Occupation: disability History of Recent Travel: No Home Medications - Allergies Allergies/Adverse Reactions: Allergies Allergy/AdvReac Type Severity Reaction Status Date / Time No Known Allergies Allergy Verified 07/09/19 10:06 - Home Medications Home Medications: Ambulatory Orders NK [No Known Home Medication] 07/09/19 Physical Examination Vital Signs: Vital Signs Temperature 98.7 F 08/03/19 19:07 Pulse Rate 85 08/03/19 19:07 Respiratory Rate 18 08/03/19 19:07 Blood Pressure 118/68 08/03/19 19:07 O2 Sat by Pulse Oximetry (%) 98 08/03/19 19:07 Constitutional: Yes: No Distress HENT: Yes: Atraumatic Neck: Yes: Supple Cardiovascular: Yes: Regular Rate and Rhythm Respiratory: Yes: Rhonchi Gastrointestinal: Yes: Normal Bowel Sounds Extremities: Yes: Other (R hand cellulitis) Edema: No Neurological: Yes: Alert, Oriented Labs: CBC, BMP 08/03/19 17:15 08/03/19 17:15 Imaging - Results Ultrasound: Report Reviewed Problem List - Problems (1) Arm abscess Assessment/Plan: iv abx id consult Code(s): L02.419 - CUTANEOUS ABSCESS OF LIMB, UNSPECIFIED (2) IVDU (intravenous drug user) Code(s): F19.90 - OTHER PSYCHOACTIVE SUBSTANCE USE, UNSPECIFIED, UNCOMPLICATED (3) Cocaine dependence Code(s): F14.20 - COCAINE DEPENDENCE, UNCOMPLICATED Qualifiers: (4) Alcohol dependence with uncomplicated withdrawal Assessment/Plan: on prn ativan detox consult Code(s): F10.230 - ALCOHOL DEPENDENCE WITH WITHDRAWAL, UNCOMPLICATED Assessment/Plan Laboratory Tests 08/03/19 08/03/19 08/03/19 17:15 17:15 17:15 WBC 10.0 RBC 3.79 L Hgb 11.1 L Hct 34.2 L MCV 90.1 MCH 29.2 MCHC 32.4 RDW 17.3 H Plt Count 277 MPV 8.0 Absolute Neuts (auto) 7.1 Neutrophils % 71.4 Lymphocytes % 17.7 Monocytes % 9.1 Eosinophils % 1.3 Basophils % 0.5 Nucleated RBC % 0 Sodium 135 L Potassium 3.9 Chloride 102 Carbon Dioxide 28 Anion Gap 5 L BUN 9.8 Creatinine 0.8 Est GFR (CKD-EPI)AfAm 119.88 Est GFR (CKD-EPI)NonAf 103.43 Random Glucose 101 Lactic Acid 1.1 Calcium 8.5 Total Bilirubin 0.5 AST 16 ALT 23 Alkaline Phosphatase 99 Total Protein 7.3 Albumin 3.2 L Active Medications Generic Name Dose Route Start Last Admin Trade Name Freq PRN Reason Stop Dose Admin Piperacillin Sod/Tazobactam 50 mls @ 100 mls/hr 08/03/19 16:45 08/03/19 17:40 Sod 3.375 gm/ Dextrose IVPB 100 mls/hr ONCE GALINA Administration Active Medications Generic Name Dose Route Start Last Admin Trade Name Freq PRN Reason Stop Dose Admin Acetaminophen 650 mg 08/03/19 22:02 Tylenol - PO Q6H PRN FEVER Clonazepam 0.5 mg 08/04/19 12:44 08/04/19 13:27 Klonopin - PO 0.5 mg Q6H PRN Administration Withdrawal Symptoms Clonidine 0.1 mg 08/04/19 12:44 Catapres - PO 08/06/19 23:59 Q4H PRN Withdrawal Symptoms Heparin Sodium (Porcine) 5,000 unit 08/03/19 22:00 08/04/19 12:24 Heparin - SQ Not Given BID GALINA Vancomycin HCl 1,000 mg in 250 mls @ 166.667 mls/hr 08/04/19 17:00 Vancomycin (Pre-Docked) IVPB Q24H GALINA Protocol Piperacillin Sod/Tazobactam 50 mls @ 100 mls/hr 08/04/19 12:45 08/04/19 13:27 Sod 3.375 gm/ Dextrose IVPB 100 mls/hr Q8H-IV GALINA Administration Protocol Lorazepam 1 mg 08/04/19 07:40 08/04/19 08:59 Ativan Injection - IVPUSH 1 mg Q4H PRN Administration ANXIETY Methadone HCl 20 mg/ Methadone 25 mg 08/05/19 10:00 HCl 5 mg PO 08/05/19 10:01 ONCE ONE Methadone HCl 10 mg/ Methadone 15 mg 08/07/19 10:00 HCl 5 mg PO 08/07/19 10:01 ONCE ONE Methadone HCl 5 mg 08/09/19 06:00 Dolophine - PO 08/09/19 06:01 ONCE@0600 ONE Methadone HCl 10 mg 08/08/19 10:00 Dolophine - PO 08/08/19 10:01 ONCE ONE Methadone HCl 20 mg 08/06/19 10:00 Dolophine - PO 08/06/19 10:01 ONCE ONE
[2019-08-03] MEDS ORDERED: ACETAMINOPHEN 325 MG TABLET (FP) PO PRN (22:02)
[2019-08-03] MEDS ORDERED: HEPARIN NA (PORCINE) 5,000 UNITS/ML 1ML VIAL ONE (22:05)
[2019-08-03] MEDS: HEPARIN NA (PORCINE) 5,000 UNITS/ML 1ML VIAL SQ SCH (22:22)
[2019-08-04 05:24] VITALS: BMI 20.9
[2019-08-04] MEDS ORDERED: LORazepam 2 MG/ML SDV VIAL IVPUSH PRN (07:40)
[2019-08-04 07:50] LABS: BASO % 0.5 % (0-2.0); EOS % 0.5 % (0-4.5); HEMATOCRIT 36.5 % (35.4-49); HEMOGLOBIN 11.9 GM/dL (11.7-16.9); LYMPH % 17.1 % (8-40); MCH 28.8 pg (25.7-33.7); MCHC 32.5 g/dl (32.0-35.9); MEAN CELL VOLUME 88.7 fl (80-96); MONO % 9.2 % (3.8-10.2); NEUT % 72.7 % (42.8-82.8); PLATELET COUNT 299 K/MM3 (134-434); RBC 4.11 M/mm3 (4.00-5.60); RDW 16.9 % (11.9-15.9); WHITE BLOOD COUNT 9.5 K/mm3 (4.0-10.0)
[2019-08-04 08:38] LABS: BLOOD UREA NITROGEN 7.4 mg/dL (7-18); CALCIUM 8.7 mg/dL (8.5-10.1); CREATININE 0.6 mg/dL (0.55-1.3); POTASSIUM 3.6 mmol/L (3.5-5.1); TOT PROT 7.5 g/dl (6.4-8.2)
--- NOTE | 2019-08-04 11:59 | CONSULT ---
Consult Detox [facility] Reason for Current Admission/Consult: Patient in withdrawals from opiates Referred by:: sherman garcia - History History of Present Illness: 49 year old male with PMH of IVDU (most recent use earlier today) presenting with isolated fever. He was being triaged at [facility] and was found to be febrile so he was sent to our ED for evaluation. Denies any cough, nausea, vomiting, diarrhea, chest pain, palpitations, syncope, headache, or other symptoms. He was seen and admitted for possible cellulitis and to rule out endocarditis. 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 Psych: Yes: Anxiety, Depression Musculoskeletal: Yes: Other (pain in left hip ambulation with cane) - Significant Medical Findings: Vital Signs: Vital Signs Temperature 98.7 F 08/03/19 19:07 Pulse Rate 85 08/03/19 19:07 Respiratory Rate 18 08/03/19 19:07 Blood Pressure 118/68 08/03/19 19:07 O2 Sat by Pulse Oximetry (%) 98 08/03/19 19:07 Constitutional: Yes: No Distress HENT: Yes: Atraumatic Neck: Yes: Supple Cardiovascular: Yes: Regular Rate and Rhythm Respiratory: Yes: Rhonchi Gastrointestinal: Yes: Normal Bowel Sounds Extremities: Yes: WNL Edema: No Neurological: Yes: Alert, Oriented COWS - Scale Resting Pulse: 1= [place] 81-100 Sweatin= Chills/Flushing Restless Observation: 3= Extraneous Movement Pupil Size: 0= Normal to Room Light Bone or Joint Aches: 1= Mild Discomfort Runny Nose/ Eye Tearin= Nasal Congestion GI Upset > 30mins: 1= Stomach Cramp Tremor Observation: 1= Tremor [place], Not Seen Yawning Observation: 1= 1-2x During Session Anxiety or Irritability: 2=Irritable/Anxious Goose Flesh Skin: 0=Smooth Skin COWS Score: 12 Assessment Plan - Diagnosis (1) Arm abscess Status: Acute (2) IVDU (intravenous drug user) Status: Acute (3) Opioid dependence with withdrawal Status: Chronic - Plan Plan: 1. Opioid dependence with withdrawals: Patient is still in withdrawals. Methadone Detox protocol started. Patient also placed on ativan prn for agitation. 2. R/O Endocarditis: Most likely only cellulitis from IVDA but away and monitor and if spikes, repeat blood cultures. Continue treatment and consider the echocardiogram if he is febrile. If cultures result come back negative, then he can be transferred back to [facility] for continuation of detox. Dr. Wiley - Medication Detox Regimen/Protocol: Methadone
[2019-08-04] MEDS: HEPARIN NA (PORCINE) 5,000 UNITS/ML 1ML VIAL SQ SCH ×2 (12:24→23:47)
--- NOTE | 2019-08-04 12:28 | CON.ID ---
Consult Consult Specialty:: infectious diseases Referred by:: Reason for Consultation:: fever,weakness,rt hand cellulitis - History of Present Illness Chief Complaint: weakness History of Present Illness: patient is a poor historian was send here because of fevers after drug use currently the only thing patient wants is his methadone.looks stable history obtained from the charts 49 year old male with PMH of IVDU lat use yesterday presenting with isolated fever. He was being triaged at [facility] and was found to be febrile so he was sent to our ED for evaluation. Denies any cough, nausea, vomiting, diarrhea, chest pain, palpitations, syncope, headache, or other symptoms. 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 Psych: Yes: Anxiety, Depression Musculoskeletal: Yes: Other (pain in left hip ambulation with cane) - Alcohol/Substance Use Hx Alcohol Use: No History of Substance Use: reports: Cocaine, Heroin - Smoking History Smoking history: Current every day smoker Have you smoked in the past 12 months: Yes Aproximately how many cigarettes per day: 40 - Social History ADL: Support Services Occupation: disability History of Recent Travel: No Home Medications - Allergies Allergies/Adverse Reactions: Allergies Allergy/AdvReac Type Severity Reaction Status Date / Time No Known Allergies Allergy Verified 07/09/19 10:06 - Home Medications Home Medications: Ambulatory Orders NK [No Known Home Medication] 07/09/19 Review of Systems - Review of Systems Constitutional: reports: Fever Eyes: reports: No Symptoms HENT: reports: No Symptoms Neck: reports: No Symptoms Cardiovascular: reports: No Symptoms Respiratory: reports: No Symptoms Gastrointestinal: reports: No Symptoms Genitourinary: reports: No Symptoms Musculoskeletal: reports: No Symptoms Integumentary: reports: No Symptoms Neurological: reports: No Symptoms Endocrine: reports: No Symptoms Hematology/Lymphatic: reports: No Symptoms Psychiatric: reports: No Symptoms Physical Exam Vital Signs: Vital Signs Temperature 98 F 08/04/19 09:06 Pulse Rate 65 08/04/19 09:06 Respiratory Rate 08/04/19 09:06 Blood Pressure 130/61 08/04/19 09:06 O2 Sat by Pulse Oximetry (%) 99 08/04/19 06:00 Constitutional: Yes: Well Nourished, Calm, Mild Distress Eyes: Yes: Conjunctiva Clear HENT: Yes: Atraumatic, Normocephalic Neck: Yes: Supple, Trachea Midline Cardiovascular: Yes: Regular Rate and Rhythm Respiratory: Yes: Regular, CTA Bilaterally Gastrointestinal: Yes: Normal Bowel Sounds, Soft Musculoskeletal: Yes: WNL Extremities: Yes: WNL Neurological: Yes: Alert, Oriented Psychiatric: Yes: Alert, Oriented Labs: CBC, BMP 08/04/19 06:40 08/04/19 06:27 Imaging - Results Ultrasound: Report Reviewed, Image Reviewed Assessment/Plan this patient coming to the hospital for fever iv drug abuse patient has developed induration along the arm,i have low suspicion of abscess though cellulitis is there and probably due to injecting we will continue abx await for cx reports if he spikes again repeat blood cx if blood cx is positive willg et an echo rest as per the team
[2019-08-04] MEDS ORDERED: clonazePAM 0.5 MG TABLET PO PRN (12:44)
[2019-08-04] MEDS ORDERED: cloNIDine HCL 0.1 MG TABLET PO PRN (12:44)
--- NOTE | 2019-08-04 13:04 | ECHO ---
Version: 1 Name: ADRY SEAY Exam: Adult Echocardiogram Study Date: 08/04/2019, 9:05 AM Age: 49 Years MMode/2D Measurements & Calculations IVSd: 0.94 cm LVIDs: 3.2 cm LVIDd: 4.7 cm LVPWd: 1.10 cm LVOT diam: 2.15 cm Ao root diam: 3.0 cm LA dimension: 3.1 cm Doppler Measurements & Calculations PI end-d nirali: 130.3 cm/sec TR max nirali: 187.3 cm/sec TR max P.0 mmHg Procedure A limited two-dimensional transthoracic echocardiogram was performed (2D). Parasetrnal veiws only. T he study is limited due to patient cooperation. Right Ventricle The right ventricle is normal in size and function. Atria The left atrial size is normal. Mitral Valve The mitral valve is normal in structure and function. Tricuspid Valve The tricuspid valve is normal in structure and function. Aortic Valve The aortic valve is normal in structure and function. Tech Comments nurse is aware patient was uncooperative and test was not fully completed. Summary Statements A limited two-dimensional transthoracic echocardiogram was performed (2D). On limited views LV and R V function apear normal. No valvular vegitations were noted. This does not exclude endocarditis. Robi Joiner 08/04/2019, 1:03 PM Ordering Physician: Cy Ernst Referring Physician: CY ERNST Performed By: Francesca Gtz
[2019-08-04] MEDS ORDERED: METHADONE HCL 10 MG TABLET PO ONE (13:15)
[2019-08-04] MEDS ORDERED: PIPERACILLIN/TAZOBACTAM 3.375 GM VIAL IVPB ONE ×2 (13:23→21:31)
[2019-08-04] MEDS ORDERED: DEXTROSE 5%-WATER - 50 ML IVPB ONE ×2 (13:23→21:31)
[2019-08-04] MEDS: PIPERACILLIN/TAZOB 3.375 GM 3.375 GM in DEXTROSE 5%-WATER - 50 ML IVPB SCH ×2 (13:27→23:10)
[2019-08-04] MEDS ORDERED: VANCOMYCIN 1 GRAM (PRE-DOCKED) 1,000 MG/250 ML BAG IVPB SCH (17:00)
--- NOTE | 2019-08-04 17:07 | PN ---
Progress Note, Physician - Current Medication List Current Medications: Active Medications Acetaminophen (Tylenol -) 650 mg PO Q6H PRN PRN Reason: FEVER Clonazepam (Klonopin -) 0.5 mg PO Q6H PRN PRN Reason: Withdrawal Symptoms Last Admin: 08/04/19 13:27 Dose: 0.5 mg Clonidine (Catapres -) 0.1 mg PO Q4H PRN PRN Reason: Withdrawal Symptoms Stop: 08/06/19 23:59 Heparin Sodium (Porcine) (Heparin -) 5,000 unit SQ BID GALINA Last Admin: 08/04/19 12:24 Dose: Not Given Vancomycin HCl (Vancomycin (Pre-Docked)) 1,000 mg in 250 mls @ 166.667 mls/hr IVPB Q24H GALINA; Protocol Piperacillin Sod/Tazobactam (Sod 3.375 gm/ Dextrose) 50 mls @ 100 mls/hr IVPB Q8H-IV GALINA; Protocol Last Admin: 08/04/19 13:27 Dose: 100 mls/hr Lorazepam (Ativan Injection -) 1 mg IVPUSH Q4H PRN PRN Reason: ANXIETY Last Admin: 08/04/19 08:59 Dose: 1 mg Methadone HCl 20 mg/ Methadone (HCl 5 mg) 25 mg PO ONCE ONE Stop: 08/05/19 10:01 Methadone HCl 10 mg/ Methadone (HCl 5 mg) 15 mg PO ONCE ONE Stop: 08/07/19 10:01 Methadone HCl (Dolophine -) 5 mg PO ONCE@0600 ONE Stop: 08/09/19 06:01 Methadone HCl (Dolophine -) 10 mg PO ONCE ONE Stop: 08/08/19 10:01 Methadone HCl (Dolophine -) 20 mg PO ONCE ONE Stop: 08/06/19 10:01 - Objective Vital Signs: Vital Signs Temperature 98.2 F 08/04/19 14:20 Pulse Rate 63 08/04/19 14:20 Respiratory Rate 18 08/04/19 14:20 Blood Pressure 121/74 08/04/19 14:20 O2 Sat by Pulse Oximetry (%) 99 08/04/19 06:00 Constitutional: Yes: No Distress HENT: Yes: Atraumatic Neck: Yes: Supple Cardiovascular: Yes: Regular Rate and Rhythm Respiratory: Yes: CTA Bilaterally Gastrointestinal: Yes: Normal Bowel Sounds Extremities: Yes: Other (r hand cellulitis) Neurological: Yes: Alert, Oriented Labs: CBC, BMP 08/04/19 06:40 08/04/19 06:27 Problem List - Problems (1) Arm abscess Assessment/Plan: iv abx id consult Code(s): L02.419 - CUTANEOUS ABSCESS OF LIMB, UNSPECIFIED (2) IVDU (intravenous drug user) Code(s): F19.90 - OTHER PSYCHOACTIVE SUBSTANCE USE, UNSPECIFIED, UNCOMPLICATED (3) Cocaine dependence Code(s): F14.20 - COCAINE DEPENDENCE, UNCOMPLICATED Qualifiers: (4) Alcohol dependence with uncomplicated withdrawal Assessment/Plan: on prn ativan on methadone Code(s): F10.230 - ALCOHOL DEPENDENCE WITH WITHDRAWAL, UNCOMPLICATED
[2019-08-05] MEDS ORDERED: DEXTROSE 5%-WATER - 50 ML IVPB ONE ×2 (04:00→08:38)
[2019-08-05] MEDS ORDERED: PIPERACILLIN/TAZOBACTAM 3.375 GM VIAL IVPB ONE ×2 (04:00→08:37)
[2019-08-05] MEDS: PIPERACILLIN/TAZOB 3.375 GM 3.375 GM in DEXTROSE 5%-WATER - 50 ML IVPB SCH ×2 (04:08→10:08)
[2019-08-05] MEDS ORDERED: METHADONE PO ONE (10:00)
[2019-08-05] MEDS ORDERED: METHADONE HCL 10 MG TABLET ONE (10:05)
[2019-08-05] MEDS ORDERED: METHADONE HCL 5 MG TABLET (FOR DETOX USE ONLY) ONE (10:05)
[2019-08-05] MEDS: HEPARIN NA (PORCINE) 5,000 UNITS/ML 1ML VIAL SQ SCH ×2 (10:08→22:19)
--- NOTE | 2019-08-05 11:45 | PN ---
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 - Current Medication List Current Medications: Active Medications Acetaminophen (Tylenol -) 650 mg PO Q6H PRN PRN Reason: FEVER Clonazepam (Klonopin -) 0.5 mg PO Q6H PRN PRN Reason: Withdrawal Symptoms Last Admin: 08/04/19 13:27 Dose: 0.5 mg Clonidine (Catapres -) 0.1 mg PO Q4H PRN PRN Reason: Withdrawal Symptoms Stop: 08/06/19 23:59 Heparin Sodium (Porcine) (Heparin -) 5,000 unit SQ BID GALINA Last Admin: 08/05/19 10:08 Dose: 5,000 unit Vancomycin HCl (Vancomycin (Pre-Docked)) 1,000 mg in 250 mls @ 166.667 mls/hr IVPB Q24H GALINA; Protocol Last Admin: 08/04/19 23:58 Dose: 166.667 mls/hr Piperacillin Sod/Tazobactam (Sod 3.375 gm/ Dextrose) 50 mls @ 100 mls/hr IVPB Q8H-IV GALINA; Protocol Last Admin: 08/05/19 10:08 Dose: 100 mls/hr Lorazepam (Ativan Injection -) 1 mg IVPUSH Q4H PRN PRN Reason: ANXIETY Last Admin: 08/04/19 08:59 Dose: 1 mg Methadone HCl 10 mg/ Methadone (HCl 5 mg) 15 mg PO ONCE ONE Stop: 08/07/19 10:01 Methadone HCl (Dolophine -) 5 mg PO ONCE@0600 ONE Stop: 08/09/19 06:01 Methadone HCl (Dolophine -) 10 mg PO ONCE ONE Stop: 08/08/19 10:01 Methadone HCl (Dolophine -) 20 mg PO ONCE ONE Stop: 08/06/19 10:01 - Objective Vital Signs: Vital Signs Temperature 99 F 08/05/19 08:25 Pulse Rate 68 08/05/19 08:25 Respiratory Rate 20 08/05/19 08:25 Blood Pressure 120/65 08/05/19 08:25 O2 Sat by Pulse Oximetry (%) 98 08/05/19 08:23 Constitutional: Yes: No Distress, Calm Cardiovascular: Yes: S1, S2 Respiratory: Yes: Regular, CTA Bilaterally Gastrointestinal: Yes: Normal Bowel Sounds, Soft Musculoskeletal: Yes: WNL Extremities: Yes: Erythema (improved), Other Neurological: Yes: Alert, Oriented Psychiatric: Yes: Alert, Oriented Labs: CBC, BMP 08/04/19 06:40 08/04/19 06:27 Assessment/Plan Problem List - Problems (1) Arm abscess Code(s): L02.419 - CUTANEOUS ABSCESS OF LIMB, UNSPECIFIED (2) IVDU (intravenous drug user) Code(s): F19.90 - OTHER PSYCHOACTIVE SUBSTANCE USE, UNSPECIFIED, UNCOMPLICATED (3) Cocaine dependence Code(s): F14.20 - COCAINE DEPENDENCE, UNCOMPLICATED Qualifiers: (4) Alcohol dependence with uncomplicated withdrawal Code(s): F10.230 - ALCOHOL DEPENDENCE WITH WITHDRAWAL, UNCOMPLICATED plan continue current mgmt will stop vanco rest as per the team
--- NOTE | 2019-08-05 13:27 | PN ---
Progress Note, Physician - Current Medication List Current Medications: Active Medications Acetaminophen (Tylenol -) 650 mg PO Q6H PRN PRN Reason: FEVER Clonazepam (Klonopin -) 0.5 mg PO Q6H PRN PRN Reason: Withdrawal Symptoms Last Admin: 08/04/19 13:27 Dose: 0.5 mg Clonidine (Catapres -) 0.1 mg PO Q4H PRN PRN Reason: Withdrawal Symptoms Stop: 08/06/19 23:59 Heparin Sodium (Porcine) (Heparin -) 5,000 unit SQ BID GALINA Last Admin: 08/05/19 10:08 Dose: 5,000 unit Piperacillin Sod/Tazobactam (Sod 3.375 gm/ Dextrose) 50 mls @ 100 mls/hr IVPB Q8H-IV GALINA; Protocol Last Admin: 08/05/19 10:08 Dose: 100 mls/hr Lorazepam (Ativan Injection -) 1 mg IVPUSH Q4H PRN PRN Reason: ANXIETY Last Admin: 08/04/19 08:59 Dose: 1 mg Methadone HCl 10 mg/ Methadone (HCl 5 mg) 15 mg PO ONCE ONE Stop: 08/07/19 10:01 Methadone HCl (Dolophine -) 5 mg PO ONCE@0600 ONE Stop: 08/09/19 06:01 Methadone HCl (Dolophine -) 10 mg PO ONCE ONE Stop: 08/08/19 10:01 Methadone HCl (Dolophine -) 20 mg PO ONCE ONE Stop: 08/06/19 10:01 - Objective Vital Signs: Vital Signs Temperature 99 F 08/05/19 08:25 Pulse Rate 68 08/05/19 08:25 Respiratory Rate 20 08/05/19 08:25 Blood Pressure 120/65 08/05/19 08:25 O2 Sat by Pulse Oximetry (%) 98 08/05/19 08:23 Constitutional: Yes: No Distress HENT: Yes: Atraumatic Neck: Yes: Supple Cardiovascular: Yes: Regular Rate and Rhythm Respiratory: Yes: CTA Bilaterally Gastrointestinal: Yes: Normal Bowel Sounds Extremities: Yes: Other (R extremity cellulitis) Neurological: Yes: Alert, Oriented Labs: CBC, BMP 08/04/19 06:40 08/04/19 06:27 Problem List - Problems (1) Arm abscess Assessment/Plan: iv abx id consult Code(s): L02.419 - CUTANEOUS ABSCESS OF LIMB, UNSPECIFIED (2) IVDU (intravenous drug user) Code(s): F19.90 - OTHER PSYCHOACTIVE SUBSTANCE USE, UNSPECIFIED, UNCOMPLICATED (3) Cocaine dependence Code(s): F14.20 - COCAINE DEPENDENCE, UNCOMPLICATED Qualifiers: (4) Alcohol dependence with uncomplicated withdrawal Assessment/Plan: on prn ativan on methadone Code(s): F10.230 - ALCOHOL DEPENDENCE WITH WITHDRAWAL, UNCOMPLICATED
--- NOTE | 2019-08-05 20:13 | DS ---
Physical Examination Vital Signs: Vital Signs Temperature 98.4 F 08/05/19 17:00 Pulse Rate 57 L 08/05/19 17:00 Respiratory Rate 08/05/19 17:00 Blood Pressure 104/61 08/05/19 17:00 O2 Sat by Pulse Oximetry (%) 98 08/05/19 08:23 Labs: CBC, BMP 08/04/19 06:40 08/04/19 06:27 Discharge Summary Problems reviewed: Yes Reason For Visit: FEVER,ACTIVE INTRAVENUS DRUG USE Current Active Problems Fever (Acute) IVDU (intravenous drug user) (Acute) Condition: Stable - Instructions - Home Medications Comprehensive Discharge Medication List: Ambulatory Orders Amox-Tr/K Cl [Augmentin - 875Mg Tablet] 1 tab PO BID #20 tablet 08/05/19
[2019-08-06] MEDS ORDERED: PIPERACILLIN/TAZOBACTAM 3.375 GM VIAL IVPB ONE ×2 (00:48→08:08)
[2019-08-06] MEDS ORDERED: DEXTROSE 5%-WATER - 50 ML IVPB ONE ×2 (00:48→08:08)
[2019-08-06] MEDS: PIPERACILLIN/TAZOB 3.375 GM 3.375 GM in DEXTROSE 5%-WATER - 50 ML IVPB SCH ×2 (02:06→09:01)
[2019-08-06 02:52] VITALS: TEMP 98.5
[2019-08-06 07:30] VITALS: BP 95/59; PULSE 56
[2019-08-06] MEDS: HEPARIN NA (PORCINE) 5,000 UNITS/ML 1ML VIAL SQ SCH (09:02)
[2019-08-06] MEDS ORDERED: METHADONE HCL 10 MG TABLET PO ONE (10:00)
--- NOTE | 2019-08-06 19:08 | DS ---
Physical Examination Vital Signs: Vital Signs Temperature 98.5 F 08/05/19 22:00 Pulse Rate 56 L 08/06/19 06:00 Respiratory Rate 20 08/06/19 06:00 Blood Pressure 95/59 L 08/06/19 06:00 O2 Sat by Pulse Oximetry (%) 98 08/06/19 09:00 Constitutional: Yes: No Distress HENT: Yes: Atraumatic Neck: Yes: Supple Cardiovascular: Yes: Regular Rate and Rhythm Respiratory: Yes: CTA Bilaterally Gastrointestinal: Yes: Normal Bowel Sounds Extremities: Yes: WNL Neurological: Yes: Alert, Oriented Labs: CBC, BMP 08/04/19 06:40 08/04/19 06:27 Discharge Summary Problems reviewed: Yes Reason For Visit: FEVER,ACTIVE INTRAVENUS DRUG USE Current Active Problems Cocaine dependence (Chronic) Nicotine dependence (Chronic) Opioid dependence (Chronic) Condition: Stable - Instructions Disposition: HOME - Home Medications Comprehensive Discharge Medication List: Ambulatory Orders Amox-Tr/K Cl [Augmentin - 875Mg Tablet] 1 tab PO BID 08/06/19 al to [facility]
[2019-08-07] MEDS ORDERED: METHADONE PO ONE (10:00)
[2019-08-08] MEDS ORDERED: METHADONE HCL 10 MG TABLET PO ONE (10:00)
== END 2019-08-06 10:40 | disposition home or self-care (01) | DRG 383 ==
LOC: JER 16:22 → JERBED 17:32 → J4W 08-04 04:58
PROVIDERS: ADMIT Internal Medicine; ATTEND Internal Medicine
DX: L03.113 Cellulitis of right upper limb (principal); F19.10 Other psychoactive substance abuse, uncomplicated; F11.23 Opioid dependence with withdrawal; F10.230 Alcohol dependence with withdrawal, uncomplicated; F14.20 Cocaine dependence, uncomplicated; F17.210 Nicotine dependence, cigarettes, uncomplicated
CPT/HCPCS: 36415; 76882-TC-RT-FY; 80053; 83605; 85025; 87040; 87389; 93306-TC; 99285-25; J0131; J1644; J7030

== ENCOUNTER 2019-08-06 11:58 | Inpatient (IN) | payer OTHER ==
[2019-08-06 13:31] VITALS: BMI 19.3
--- NOTE | 2019-08-06 13:56 | HP ---
"COWS - Scale Resting Pulse: 0= [place] 80 or Below Sweatin= No chills or Flushing Restless Observation: 0= Sits Still Pupil Size: 0= Normal to Room Light Bone or Joint Aches: 0= None Runny Nose/ Eye Tearin= None GI Upset > 30mins: 0= None Tremor Observation: 0= None Yawning Observation: 0= None Anxiety or Irritability: 0= None Goose Flesh Skin: 0=Smooth Skin COWS Score: 0 CIWA Score Nausea/Vomitin-No Nausea/No Vomiting Muscle Tremors: None Anxiety: 0-No Anxiety, at Ease Agitation: 0-Normal Activity Paroxysmal Sweats: No Perspiration Orientation: 0-Oriented Tacttile Disturbances: 0-None Auditory Disturbances: 0-None Visual Disturbances: 0-None Headache: 0-None Present CIWA-Ar Total Score: 0 - Admission Criteria OASAS Guidelines: Admission for Medically Managed Detox: Requires at least one of the followin. CIWA greater than 12 2. Seizures within the past 24 hours 3. Delirium tremens within the past 24 hours 4. Hallucinations within the past 24 hours 5. Acute intervention needed for co occurring medical disorder 6. Acute intervention needed for co occurring psychiatric disorder 7. Severe withdrawal that cannot be handled at a lower level of care (continued vomiting, continued diarrhea, abnormal vital signs) requiring intravenous medication and/or fluids 8. Admitting History and Physical - Past Medical History [employer]ANCE: Yes: Syncope Psych: Yes: Anxiety, Depression Musculoskeletal: Yes: Other (pain in left hip ambulation with cane) - Smoking History Smoking history: Current every day smoker Have you smoked in the past 12 months: No Aproximately how many cigarettes per day: 40 - Alcohol/Substance Use Hx Alcohol Use: No History of Substance Use: reports: Cocaine, Heroin - Social History ADL: Support Services Occupation: disability History of Recent Travel: No Admission [facility] Allergies/Adverse Reactions: Allergies Allergy/AdvReac Type Severity Reaction Status Date / Time No Known Allergies Allergy Verified 07/09/19 10:06 History of Present Illness: Search Terms: jorge leon, 1970 Search Date: 08/06/2019 01:52:02 PM The Drug Utilization Report below displays all of the controlled substance prescriptions, if any, that your patient has filled in the last twelve months. The information displayed on this report is compiled from pharmacy submissions to the Department, and accurately reflects the information as submitted by the pharmacies. This report was requested by: Josefina Spence | Reference #: [id number] There are no results for the search terms that you entered. pt here rashaun Callejas on Augmentin for R FA cellulitis , was given 20 mg Methadone today 9 a.m. per MAR , prior use 9 bags methadone iv . cocaine 4 days ago IV tobacco : 2 ppd states was transported by security to this facility denies use since d/c . Exam Limitations: No Limitations - Review of Systems Constitutional: No Symptoms Reported EENT: reports: No Symptoms Reported Respiratory: reports: No Symptoms reported Cardiac: reports: No Symptoms Reported GI: reports: No Symptoms Reported : reports: No Symptoms Reported Musculoskeletal: reports: No Symptoms Reported Integumentary: reports: See HPI, Other (r fa) Neuro: reports: No Symptoms reported Endocrine: reports: No Symptoms Reported Hematology: reports: No Symptoms Reported Psychiatric: reports: Orientated x3 Patient History - Patient Medical History Hx Anemia: No Hx Asthma: No Hx Chronic Obstructive Pulmonary Disease (COPD): No Hx Cancer: No Hx Cardiac Disorders: No Hx Congestive Heart Failure: No Hx Hypertension: No Hx Hypercholesterolemia: No Hx Pacemaker: No HX Cerebrovascular Accident: No Hx Seizures: No Hx Dementia: No Hx Diabetes: No Hx Gastrointestinal Disorders: No Hx Liver Disease: No Hx Genitourinary Disorders: No Hx Sexually Transmitted Disorders: No Hx Renal Disease (ESRD): No Hx Thyroid Disease: No Hx Human Immunodeficiency Virus (HIV): No Hx Hepatitis C: No Hx Depression: No Hx Suicide Attempt: No Hx Bipolar Disorder: No Hx Schizophrenia: No - Patient Surgical History Past Surgical History: No Hx Neurologic Surgery: No Hx Cataract Extraction: No Hx Cardiac Surgery: No Hx Lung Surgery: No Hx Breast Surgery: No Hx Breast Biopsy: No Hx Abdominal Surgery: No Hx Appendectomy: No Hx Cholecystectomy: No Hx Genitourinary Surgery: No Hx Section: No Hx Orthopedic Surgery: No Anesthesia Reaction: No - PPD History Previous Implant?: Yes Documented Results: Negative w/proof Implanted On Prior [facility] Admission?: Yes Date: 07/11/19 Results: Negative - Reproductive History Patient : No - Smoking Cessation Smoking history: Current every day smoker Have you smoked in the past 12 months: No Aproximately how many cigarettes per day: 40 Cigars Per Day: 0 Hx Chewing Tobacco Use: No Initiated information on smoking cessation: Yes 'Breaking Loose' booklet given: 08/06/19 - Substances abused Alcohol Substance route: Oral Frequency: Daily Amount used: One pint of voldka Age of first use: 10 Date of last use: 08/03/19 Cocaine Substance route: Injection Frequency: Daily Amount used: one ounce Age of first use: 12 Date of last use: 08/03/19 Heroin Substance route: Injection Frequency: Daily Amount used: Nine bags Age of first use: 13 Date of last use: 08/03/19 Admission Physical Exam S - Vital Signs Vital Signs: Vital Signs - 24 hr 08/06/19 13:20 Temperature 96.9 F L Pulse Rate 65 Respiratory 18 Rate Blood Pressure 103/61 - Physical General Appearance: Yes: No Apparent Distress HEENTM: Yes: EOMI, Hearing grossly Normal, Normocephalic, Normal Voice Respiratory: Yes: Chest Non-Tender, Lungs Clear, Normal Breath Sounds, No Respiratory Distress, No Accessory Muscle Use Neck: Yes: No masses,lesions,Nodules, Trachea in good position Cardiology: Yes: Regular Rhythm, Regular Rate, S1, S2 Abdominal: Yes: Non Tender, Soft Musculoskeletal: Yes: Gait Steady Extremities: Yes: Normal Range of Motion, Non-Tender Neurological: Yes: Fully Oriented, Alert, Motor Strength 5/5 Integumentary: Yes: Warm, Other (right forearm area of induration known cellulitis on Augmentin bid x 10 days per hospital d/c) - Diagnostic (1) Opioid dependence Current Visit: Yes Status: Chronic Qualifiers: Substance use status: uncomplicated Qualified Code(s): F11.20 - Opioid dependence, uncomplicated (2) Nicotine dependence Current Visit: Yes Status: Chronic Qualifiers: Nicotine product type: cigarettes (3) Cocaine dependence Current Visit: Yes Status: Chronic Qualifiers: Substance use status: uncomplicated Qualified Code(s): F14.20 - Cocaine dependence, uncomplicated Breathalyzer - Breathalyzer Breathalyzer: 0 Urine Drug Screen - Test Device Lot number: [id number] Expiration date: 06/01/21 - Control Is test valid?: Yes - Results Drug screen NEGATIVE: No Urine drug screen results: JOVANI-Cocaine, MOP-Opiates, MTD-Methadone Inpatient Rehab Admission - Rehab Decision to Admit Inpatient rehab admission?: No"
[2019-08-06] MEDS ORDERED: cloNIDine HCL 0.1 MG TABLET PO PRN (14:02)
[2019-08-06] MEDS ORDERED: ACETAMINOPHEN 325 MG TABLET (FP) PO PRN ×2 (14:04)
[2019-08-06] MEDS ORDERED: IBUPROFEN 400 MG TABLET (FP) PO PRN (14:04)
[2019-08-06] MEDS ORDERED: MAGNESIUM CITRATE 300 ML BOTTLE PO PRN (14:04)
[2019-08-06] MEDS ORDERED: hydrOXYzine PAMOATE 25 MG CAPSULE (FP) PO PRN (14:04)
[2019-08-06] MEDS ORDERED: MAGNESIUM HYDROX 2400MG/30ML ORAL SUSPENSION 30 ML CUP PO PRN (14:04)
[2019-08-06] MEDS ORDERED: MENTHOL/PHENOL 1 EACH UD MM PRN (14:04)
[2019-08-06] MEDS ORDERED: BISMUTH SUBSALICYLATE 262 MG/15 ML BTL PO PRN (14:04)
[2019-08-06] MEDS ORDERED: MAG HYDROX/AL HYDROX/SIMETH 30 ML UNIT-DOSE CUP PO PRN (14:04)
[2019-08-06] MEDS: NICOTINE 14 MG/24 HOURS TOPICAL PATCH TD SCH (15:45)
[2019-08-06] MEDS: METHOCARBAMOL 500 MG TABLET PO PRN (18:02)
[2019-08-06] MEDS: THIAMINE HCL 100 MG TABLET (FP) PO SCH (22:24)
[2019-08-06] MEDS: AMOX TR/POT CLAV 875MG/125MG TABLETS (FP) PO SCH (22:24)
[2019-08-06] MEDS: MELATONIN 5 MG TABLETS PO PRN (22:25)
[2019-08-07] MEDS ORDERED: METHADONE HCL 5 MG TABLET (FOR DETOX USE ONLY) PO ONE (10:00)
[2019-08-07] MEDS: PRENATAL VITAMINS W/ FOLIC ACID TABLET (FP) PO SCH (10:18)
[2019-08-07] MEDS: AMOX TR/POT CLAV 875MG/125MG TABLETS (FP) PO SCH ×2 (10:18→22:10)
[2019-08-07] MEDS: NICOTINE 14 MG/24 HOURS TOPICAL PATCH TD SCH (10:20)
[2019-08-07] MEDS ORDERED: PNEUMOC 13-VAL CONJ-DIP CRM/PF 0.5 ML DISP.SYRIN IM ONE (12:00)
[2019-08-07] MEDS ORDERED: PNEUMOCOCCAL 23 VACCINE 0.5 ML VIAL IM ONE (12:00)
--- NOTE | 2019-08-07 12:06 | PN ---
[facility] CIWA - CIWA Score Nausea/Vomitin-Mild Nausea/No Vomiting Muscle Tremors: 1-None Visible, but [place] Anxiety: 0-No Anxiety, at Ease Agitation: 0-Normal Activity Paroxysmal Sweats: No Perspiration Orientation: 0-Oriented Tacttile Disturbances: 0-None Auditory Disturbances: 0-None Visual Disturbances: 0-None Headache: 0-None Present CIWA-Ar Total Score: 2 S COWS - Scale Resting Pulse: 0= [place] 80 or Below Sweatin= No chills or Flushing Restless Observation: 0= Sits Still Pupil Size: 0= Normal to Room Light Bone or Joint Aches: 1= Mild Discomfort Runny Nose/ Eye Tearin= None GI Upset > 30mins: 2= Nausea/Diarrhea Tremor Observation of Outstretched Hands: 1= Tremor [place], Not Seen Yawning Observation: 0= None Anxiety or Irritability: 0= None Goose Flesh Skin: 0=Smooth Skin COWS Score: 4 S Progress Note (SOAP) Subjective: Pt asking for Librium for hx of alchol use disorder. Objective: 08/07/19 12:04 Vital Signs Temperature 97.1 F L 08/07/19 08:34 Pulse Rate 59 L 08/07/19 08:34 Respiratory Rate 18 08/07/19 08:34 Blood Pressure 90/58 L 08/07/19 08:34 O2 Sat by Pulse Oximetry (%) Gnl: WD, slender, in no distress MS: Awake, alert, nl language Motor: moves all limbs normally Skin: dry, right forearm site of cellulitis is dry, not warm to touch. Track mendoza right forearm Assessment: 08/07/19 12:06 1. Alcohol use disorder 2. Opiod use disorder 3. recent right forearm cellulitis, improving Plan: 1. continue methadone protocol 2. hold on Librium, not clinically indicated, will monitor 3. On Augmentin for a plan of 10 days
[2019-08-07] MEDS: THIAMINE HCL 100 MG TABLET (FP) PO SCH (22:10)
[2019-08-07] MEDS: METHOCARBAMOL 500 MG TABLET PO PRN (22:12)
[2019-08-07] MEDS: MELATONIN 5 MG TABLETS PO PRN (22:12)
[2019-08-08] MEDS ORDERED: METHADONE HCL 10 MG TABLET (FOR DETOX USE ONLY) PO ONE (10:00)
[2019-08-08] MEDS: NICOTINE 14 MG/24 HOURS TOPICAL PATCH TD SCH (11:08)
[2019-08-08] MEDS: AMOX TR/POT CLAV 875MG/125MG TABLETS (FP) PO SCH ×2 (11:08→22:33)
[2019-08-08] MEDS: PRENATAL VITAMINS W/ FOLIC ACID TABLET (FP) PO SCH (11:08)
--- NOTE | 2019-08-08 11:21 | PN ---
[facility] CIWA - CIWA Score Nausea/Vomitin-No Nausea/No Vomiting Muscle Tremors: None Anxiety: 1-Mildly Anxious Agitation: 0-Normal Activity Paroxysmal Sweats: 1-Minimal Palms Moist Orientation: 0-Oriented Tacttile Disturbances: 0-None Auditory Disturbances: 0-None Visual Disturbances: 0-None Headache: 0-None Present CIWA-Ar Total Score: 2 S COWS - Scale Resting Pulse: 0= [place] 80 or Below Sweatin= No chills or Flushing Restless Observation: 0= Sits Still Pupil Size: 0= Normal to Room Light Bone or Joint Aches: 1= Mild Discomfort Runny Nose/ Eye Tearin= None GI Upset > 30mins: 0= None Tremor Observation of Outstretched Hands: 0= None Yawning Observation: 0= None Anxiety or Irritability: 1=Feels Anxious/Irritable Goose Flesh Skin: 0=Smooth Skin COWS Score: 2 S Progress Note (SOAP) Subjective: c/o mild withdrawal symptoms. Objective: Vital Signs 08/08/19 08/08/19 08/08/19 03:30 06:39 08:43 Temperature 97.3 F L 96.7 F L Pulse Rate 60 51 L Respiratory 16 16 16 Rate Blood Pressure 100/57 L 113/55 L Laboratory Last Values HIV 1&2 Antibody Screen Negative 08/07/19 08:23 HIV P24 Antigen Negative 08/07/19 08:23 Assessment: 08/08/19 11:18 AOX3, in no acute respiratory distress. Full ROM, ambulating in the unit. Withdrawal symptoms. For d/c in AM. 08/08/19 11:19 Plan: continue detox. Antibiotic prescription sent to [facility] pharmacy. D/C in AM.
[2019-08-08] MEDS: THIAMINE HCL 100 MG TABLET (FP) PO SCH (22:33)
[2019-08-08] MEDS: MELATONIN 5 MG TABLETS PO PRN (22:33)
[2019-08-09] MEDS ORDERED: METHADONE HCL 5 MG TABLET (FOR DETOX USE ONLY) PO ONE (06:00)
[2019-08-09 06:21] VITALS: BP 109/57; PULSE 55; TEMP 98.3
--- NOTE | 2019-08-09 13:26 | DS ---
[facility] Detox Discharge Summary Admission Date: 08/06/19 Discharge Date: 08/09/19 - History Present History: Alcohol Dependence, Sedative Dependence Additional Comments: 49 years old male admitted on 08/06/19 for alcohol and opiate withdrawal sx management treated with clonidine 0.1mg po prn and methadone detox regiments patient has completed the methadone regiment and tolerated well alert oriented x 3 cardiac s1s2 regular rate rhythm respiratory clear lungs bilaterally on auscultation skin warm and dry - Physical Exam Results Vital Signs: Vital Signs Temperature 98.3 F 08/09/19 06:21 Pulse Rate 55 L 08/09/19 06:21 Respiratory Rate 16 08/09/19 06:21 Blood Pressure 109/57 L 08/09/19 06:21 O2 Sat by Pulse Oximetry (%) Pertinent Admission Physical Exam Findings: alcohol and opiate withdrawal Laboratory Last Values HIV 1&2 Antibody Screen Negative 08/07/19 08:23 HIV P24 Antigen Negative 08/07/19 08:23 Laboratory Last Values HIV 1&2 Antibody Screen Negative 08/07/19 08:23 HIV P24 Antigen Negative 08/07/19 08:23 lab seen 08/04/19 result - Treatment Hospital Course: Detox Protocol Followed, Detoxed Safely, Responded well, Discharged Condition Good, Rehab Referral Accepted Patient has Accepted a Rehab Referral to: [facility] rehab - Medication Discharge Medications: Ambulatory Orders Amox-Tr/K Cl [Augmentin - 875Mg Tablet] 1 tab PO BID 7 Days #14 tablet 08/08/19 - Diagnosis (1) Opioid dependence, uncomplicated Status: Acute (2) Use of cane as ambulatory aid Status: Chronic (3) Weight loss Status: Acute (4) Alcohol dependence with uncomplicated withdrawal Status: Acute (5) Nicotine dependence Status: Acute Qualifiers: Nicotine product type: cigarettes Substance use status: in withdrawal Qualified Code(s): F17.213 - Nicotine dependence, cigarettes, with withdrawal - AMA Did Patient Leave Against Medical Advice: No CIWA Score - CIWA Score Nausea/Vomitin-No Nausea/No Vomiting Muscle Tremors: None Anxiety: 0-No Anxiety, at Ease Agitation: 0-Normal Activity Paroxysmal Sweats: 1-Minimal Palms Moist Orientation: 0-Oriented Tacttile Disturbances: 0-None Auditory Disturbances: 0-None Visual Disturbances: 0-None Headache: 0-None Present CIWA-Ar Total Score: 1 COWS (PN) - Opiate Withdrawal Resting Pulse: 0= [place] 80 or Below Sweatin= No chills or Flushing Restless Observation: 0= Sits Still Pupil Size: 0= Normal to Room Light Bone or Joint Aches: 0= None Runny Nose/ Eye Tearin= None GI Upset > 30mins: 0= None Tremor Observation of Outstretched Hands: 0= None Yawning Observation: 0= None Anxiety or Irritability: 1=Feels Anxious/Irritable Goose Flesh Skin: 0=Smooth Skin COWS Score: 1
== END 2019-08-09 10:00 | disposition home or self-care (01) | DRG 773 ==
LOC: YASAS 11:58 → Y3N 14:19
PROVIDERS: ADMIT Allergy & Immunology; ATTEND Allergy & Immunology
PROC: HZ2ZZZZ Detoxification Services for Substance Abuse Treatment (ICD-10-PCS; principal; 2019-08-06)
DX: F11.23 Opioid dependence with withdrawal (principal); F10.230 Alcohol dependence with withdrawal, uncomplicated; F14.20 Cocaine dependence, uncomplicated; F17.213 Nicotine dependence, cigarettes, with withdrawal; R63.4 Abnormal weight loss; L03.113 Cellulitis of right upper limb; R26.2 Difficulty in walking, not elsewhere classified; Z99.89 Dependence on other enabling machines and devices; Z59.0 Homelessness
CPT/HCPCS: 36415; 87389; J0735

== ENCOUNTER 2019-09-02 10:33 | Inpatient (IN) | payer OTHER ==
--- NOTE | 2019-09-02 11:04 | BHS.RME ---
Substance Use & Tx History - Substance Use History Opiates (Heroin) Substance amount: 1 bundle Frequency of use: Daily Substance route: Injection (ex: intravenous or skin popping) Date of Last Use: 09/02/19 Alcohol Substance amount: 1 pint vodka Frequency of use: Less than 3 times per week Substance route: Oral Date of Last Use: 09/01/19 Nicotine Substance amount: 1-2 pack Frequency of use: Daily Substance route: Smoking Date of Last Use: 09/02/19 COWS - Scale Resting Pulse: 0= [place] 80 or Below Sweatin= Chills/Flushing Restless Observation: 1= Difficult to Sit Still Pupil Size: 0= Normal to Room Light (used this am not yet in withdrawals) Bone or Joint Aches: 2= Severe Diffuse Aches Runny Nose/ Eye Tearin= Nasal Congestion GI Upset > 30mins: 1= Stomach Cramp Tremor Observation: 1= Tremor [place], Not Seen Yawning Observation: 1= 1-2x During Session Anxiety or Irritability: 1=Feels Anxious/Irritable Goose Flesh Skin: 0=Smooth Skin COWS Score: 9
--- NOTE | 2019-09-02 12:30 | HP ---
COWS - Scale Resting Pulse: 0= [place] 80 or Below Sweatin= Chills/Flushing Restless Observation: 1= Difficult to Sit Still Pupil Size: 0= Normal to Room Light (used this am not yet in withdrawals) Bone or Joint Aches: 2= Severe Diffuse Aches Runny Nose/ Eye Tearin= Nasal Congestion GI Upset > 30mins: 1= Stomach Cramp Tremor Observation: 1= Tremor [place], Not Seen Yawning Observation: 1= 1-2x During Session Anxiety or Irritability: 1=Feels Anxious/Irritable Goose Flesh Skin: 0=Smooth Skin COWS Score: 9 CIWA Score Nausea/Vomitin-Mild Nausea/No Vomiting Muscle Tremors: 1-None Visible, but [place] Anxiety: 1-Mildly Anxious Agitation: 0-Normal Activity Paroxysmal Sweats: No Perspiration Orientation: 0-Oriented Tacttile Disturbances: 0-None Auditory Disturbances: 0-None Visual Disturbances: 1-Very Mild Sensitivity Headache: 0-None Present CIWA-Ar Total Score: 4 - Admission Criteria OASAS Guidelines: Admission for Medically Managed Detox: Requires at least one of the followin. CIWA greater than 12 2. Seizures within the past 24 hours 3. Delirium tremens within the past 24 hours 4. Hallucinations within the past 24 hours 5. Acute intervention needed for co occurring medical disorder 6. Acute intervention needed for co occurring psychiatric disorder 7. Severe withdrawal that cannot be handled at a lower level of care (continued vomiting, continued diarrhea, abnormal vital signs) requiring intravenous medication and/or fluids 8. Admitting History and Physical - Admission Chief Complaint: Mr. Monroe is a 49 yo gentleman who returns to [facility] requesting a detox from heroin. He is also drinking alcohol. History of Present Illness: Mr. Monroe is a 49 yo gentleman who returns to [facility] requesting a detox from heroin. He is also drinking alcohol. He was last admitted her between August 06 and Aug 09. he left with a referral to [facility]. He relapsed upon discharge and did not go to [facility]. PMH: none Psych: none Surg: none Substance use hx Alcohol: 1 pint Vodka every 2 weeks, first drink age 14y, last drink yesterday. No black outs or seizures heroin: one bundle daily, IV, lsat use this am, first use age 18 y. No overdoses Nicotine: 1-2 ppd - Past Medical History [employer] AP[employer]ENTICE: Yes: Syncope Psych: Yes: Anxiety, Depression Musculoskeletal: Yes: Other (pain in left hip ambulation with cane) - Smoking History Smoking history: Current every day smoker Have you smoked in the past 12 months: No Aproximately how many cigarettes per day: 40 - Alcohol/Substance Use Hx Alcohol Use: No History of Substance Use: reports: Cocaine, Heroin - Social History ADL: Support Services Occupation: disability History of Recent Travel: No Admission [facility] - [facility] Allergies/Adverse Reactions: Allergies Allergy/AdvReac Type Severity Reaction Status Date / Time No Known Allergies Allergy Verified 07/09/19 10:06 Exam Limitations: No Limitations - Ebola screening Have you traveled outside of the country in the last 21 days: No Have you had contact with anyone from an Ebola affected area: No Have you been sick,other than usual withdrawal symptoms: No Do you have a fever: No - Review of Systems Constitutional: No Symptoms Reported EENT: reports: Nose Congestion Respiratory: reports: No Symptoms reported Cardiac: reports: No Symptoms Reported GI: reports: Nausea : reports: No Symptoms Reported Musculoskeletal: reports: Joint Pain Integumentary: reports: No Symptoms Reported Neuro: reports: Tremors Endocrine: reports: No Symptoms Reported Hematology: reports: No Symptoms Reported Psychiatric: reports: Anxious Patient History - Patient Medical History Hx Anemia: No Hx Asthma: No Hx Chronic Obstructive Pulmonary Disease (COPD): No Hx Cancer: No Hx Cardiac Disorders: No Hx Congestive Heart Failure: No Hx Hypertension: No Hx Hypercholesterolemia: No Hx Pacemaker: No HX Cerebrovascular Accident: No Hx Seizures: No Hx Dementia: No Hx Diabetes: No Hx Gastrointestinal Disorders: No Hx Liver Disease: No Hx Genitourinary Disorders: No Hx Sexually Transmitted Disorders: No Hx Renal Disease (ESRD): No Hx Thyroid Disease: No Hx Human Immunodeficiency Virus (HIV): No Hx Hepatitis C: No Hx Depression: No Hx Suicide Attempt: No Hx Bipolar Disorder: No Hx Schizophrenia: No - Patient Surgical History Past Surgical History: No Hx Neurologic Surgery: No Hx Cataract Extraction: No Hx Cardiac Surgery: No Hx Lung Surgery: No Hx Breast Surgery: No Hx Breast Biopsy: No Hx Abdominal Surgery: No Hx Appendectomy: No Hx Cholecystectomy: No Hx Genitourinary Surgery: No Hx Section: No Hx Orthopedic Surgery: No Anesthesia Reaction: No - PPD History Date: 07/11/19 Results: Negative - Smoking Cessation Smoking history: Current every day smoker Have you smoked in the past 12 months: No Aproximately how many cigarettes per day: 40 Cigars Per Day: 0 Hx Chewing Tobacco Use: No Initiated information on smoking cessation: Yes 'Breaking Loose' booklet given: 09/01/19 - Substances abused Alcohol Frequency: 1-3 times last 30 days Amount used: 1 pint Vodka Age of first use: 14 Date of last use: 09/01/19 Heroin Substance route: Injection Frequency: Daily Amount used: 1 bundle Age of first use: 18 Date of last use: 09/02/19 Admission Physical Exam [facility] - Physical General Appearance: Yes: Within Normal Limits HEENTM: Yes: Hearing grossly Normal, Normocephalic Respiratory: Yes: Lungs Clear, Normal Breath Sounds Neck: Yes: Within Normal Limits Breast: Yes: Breast Exam Deferred Cardiology: Yes: Regular Rhythm, Regular Rate Abdominal: Yes: Tenderness (right upper quadrant, no rebound, no masses) Genitourinary: Yes: Other (deferred) Back: Yes: Normal Inspection Musculoskeletal: Yes: Within Normal Limits Extremities: Yes: Within Normal Limits Neurological: Yes: Alert Integumentary: Yes: Track Freedman (right forearm injection site, firm, no sign of infection) - Diagnostic (1) Nicotine dependence Current Visit: No Status: Acute Qualifiers: Nicotine product type: cigarettes Substance use status: in withdrawal Qualified Code(s): F17.213 - Nicotine dependence, cigarettes, with withdrawal (2) Opioid dependence Current Visit: No Status: Chronic Qualifiers: Substance use status: uncomplicated Qualified Code(s): F11.20 - Opioid dependence, uncomplicated Cleared for Admission [facility] - Detox or Rehab [facility] Level of Care: Medically Managed Detox Regimen/Protocol: Methadone (will not treat for alcohol use, no significant withdrawal, use is low) Breathalyzer - Breathalyzer Breathalyzer: 0 Urine Drug Screen - Test Device Lot number: [id number] Expiration date: 06/06/21 - Control Is test valid?: Yes - Results Drug screen NEGATIVE: No Urine drug screen results: JOVANI-Cocaine Inpatient Rehab Admission - Rehab Decision to Admit Inpatient rehab admission?: No
[2019-09-02] MEDS ORDERED: ACETAMINOPHEN 325 MG TABLET (FP) PO PRN ×2 (12:53)
[2019-09-02] MEDS ORDERED: MAGNESIUM CITRATE 300 ML BOTTLE PO PRN (12:53)
[2019-09-02] MEDS ORDERED: IBUPROFEN 400 MG TABLET (FP) PO PRN (12:53)
[2019-09-02] MEDS ORDERED: cloNIDine HCL 0.1 MG TABLET PO PRN (12:53)
[2019-09-02] MEDS ORDERED: MAGNESIUM HYDROX 2400MG/30ML ORAL SUSPENSION 30 ML CUP PO PRN (12:53)
[2019-09-02] MEDS ORDERED: MELATONIN 5 MG TABLETS PO PRN (12:53)
[2019-09-02] MEDS ORDERED: hydrOXYzine PAMOATE 25 MG CAPSULE (FP) PO PRN (12:53)
[2019-09-02] MEDS ORDERED: MENTHOL/PHENOL 1 EACH UD MM PRN (12:53)
[2019-09-02] MEDS ORDERED: BISMUTH SUBSALICYLATE 524 MG/30 ML UD PO PRN (12:53)
[2019-09-02] MEDS ORDERED: MAG HYDROX/AL HYDROX/SIMETH 30 ML UNIT-DOSE CUP PO PRN (12:53)
[2019-09-02 13:06] VITALS: BMI 25.2
[2019-09-02] MEDS ORDERED: METHADONE HCL 10 MG TABLET (FOR DETOX USE ONLY) PO ONE (14:00)
[2019-09-02] MEDS: METHOCARBAMOL 500 MG TABLET PO PRN (14:47)
[2019-09-02] MEDS: NICOTINE 14 MG/24 HOURS TOPICAL PATCH TD SCH (14:50)
[2019-09-02 16:37] LABS: HEMATOCRIT 33.6 % (35.4-49); MCH 28.9 pg (25.7-33.7); MCHC 32.7 g/dl (32.0-35.9); MEAN CELL VOLUME 88.3 fl (80-96); MEAN PLT VOLUME 8.2 fl (7.5-11.1); PLATELET COUNT 260 K/MM3 (134-434); WHITE BLOOD COUNT 4.4 K/mm3 (4.0-10.0)
[2019-09-02 16:50] LABS: BILIRUBIN,TOTAL 0.8 mg/dL (0.2-1); BLOOD UREA NITROGEN 15.8 mg/dL (7-18); CALCIUM 8.1 mg/dL (8.5-10.1); CREATININE 0.7 mg/dL (0.55-1.3); POTASSIUM 3.6 mmol/L (3.5-5.1); TOT PROT 6.9 g/dl (6.4-8.2)
[2019-09-02] MEDS: THIAMINE HCL 100 MG TABLET (FP) PO SCH (22:38)
[2019-09-03] MEDS: METHOCARBAMOL 500 MG TABLET PO PRN (08:45)
[2019-09-03] MEDS ORDERED: METHADONE HCL 5 MG TABLET (FOR DETOX USE ONLY) ONE (09:21)
[2019-09-03] MEDS ORDERED: METHADONE HCL 10 MG TABLET (FOR DETOX USE ONLY) ONE (09:22)
[2019-09-03] MEDS ORDERED: METHADONE (DETOX) 20 MG, METHADONE (DETOX) 5 MG PO ONE (10:00)
--- NOTE | 2019-09-03 10:07 | PN ---
S COWS - Scale Resting Pulse: 0= [place] 80 or Below Sweatin= No chills or Flushing Restless Observation: 1= Difficult to Sit Still Pupil Size: 1= Pupils >than Normal Bone or Joint Aches: 1= Mild Discomfort Runny Nose/ Eye Tearin= Nasal Congestion GI Upset > 30mins: 2= Nausea/Diarrhea Tremor Observation of Outstretched Hands: 2= Slight Tremor Visible Yawning Observation: 1= 1-2x During Session Anxiety or Irritability: 2=Irritable/Anxious Goose Flesh Skin: 0=Smooth Skin COWS Score: 11 S Progress Note (SOAP) Subjective: alert,irritable,anxioujs,interrupted sleep,pain in the body and back,poor appetite Objective: 09/03/19 10:04 Vital Signs Temperature 97.9 F 09/03/19 05:42 Pulse Rate 50 L 09/03/19 05:42 Respiratory Rate 18 09/03/19 05:42 Blood Pressure 123/79 09/03/19 05:42 O2 Sat by Pulse Oximetry (%) Laboratory Last Values WBC 4.4 K/mm3 (4.0-10.0) 09/02/19 13:10 RBC 3.80 M/mm3 (4.00-5.60) L 09/02/19 13:10 Hgb 11.0 GM/dL (11.7-16.9) L 09/02/19 13:10 Hct 33.6 % (35.4-49) L 09/02/19 13:10 MCV 88.3 fl (80-96) 09/02/19 13:10 MCH 28.9 pg (25.7-33.7) 09/02/19 13:10 MCHC 32.7 g/dl (32.0-35.9) 09/02/19 13:10 RDW 17.0 % (11.9-15.9) H 09/02/19 13:10 Plt Count 260 K/MM3 (134-434) 09/02/19 13:10 MPV 8.2 fl (7.5-11.1) 09/02/19 13:10 Sodium 139 mmol/L (136-145) 09/02/19 13:10 Potassium 3.6 mmol/L (3.5-5.1) 09/02/19 13:10 Chloride 106 mmol/L (98-107) 09/02/19 13:10 Carbon Dioxide 30 mmol/L (21-32) 09/02/19 13:10 Anion Gap 4 MMOL/L (8-16) L 09/02/19 13:10 BUN 15.8 mg/dL (7-18) 09/02/19 13:10 Creatinine 0.7 mg/dL (0.55-1.3) 09/02/19 13:10 Est GFR (CKD-EPI)AfAm 126.64 09/02/19 13:10 Est GFR (CKD-EPI)NonAf 109.27 09/02/19 13:10 Random Glucose 111 mg/dL (74-106) H 09/02/19 13:10 Calcium 8.1 mg/dL (8.5-10.1) L 09/02/19 13:10 Total Bilirubin 0.8 mg/dL (0.2-1) 09/02/19 13:10 AST 22 U/L (15-37) 09/02/19 13:10 ALT 33 U/L (13-61) 09/02/19 13:10 Alkaline Phosphatase 94 U/L (45-117) 09/02/19 13:10 Total Protein 6.9 g/dl (6.4-8.2) 09/02/19 13:10 Albumin 3.0 g/dl (3.4-5.0) L 09/02/19 13:10 RPR Titer Nonreactive (NONREACTIVE) 09/02/19 13:10 Assessment: 09/03/19 10:05 withdrawal symptom Plan: continue detox methadone regimen,glucose 111,will go fasting glucose in am,poor appetite with weight loss,ensure plus 12 mls po bid
[2019-09-03] MEDS: PRENATAL VITAMINS W/ FOLIC ACID TABLET (FP) PO SCH (11:07)
[2019-09-03] MEDS: NICOTINE 14 MG/24 HOURS TOPICAL PATCH TD SCH (11:07)
[2019-09-03] MEDS: THIAMINE HCL 100 MG TABLET (FP) PO SCH (22:51)
--- NOTE | 2019-09-04 09:55 | PN ---
[facility] COWS - Scale Resting Pulse: 0= [place] 80 or Below Sweatin= No chills or Flushing Restless Observation: 1= Difficult to Sit Still Pupil Size: 1= Pupils >than Normal Bone or Joint Aches: 1= Mild Discomfort Runny Nose/ Eye Tearin= Nasal Congestion GI Upset > 30mins: 1= Stomach Cramp Tremor Observation of Outstretched Hands: 2= Slight Tremor Visible Yawning Observation: 1= 1-2x During Session Anxiety or Irritability: 2=Irritable/Anxious Goose Flesh Skin: 0=Smooth Skin COWS Score: 10 [facility] Progress Note (SOAP) Subjective: alert,irritable,anxious,interrupted sleep,pain in the body,back Objective: 09/04/19 09:54 Vital Signs Temperature 97 F L 09/04/19 06:41 Pulse Rate 41 L 09/04/19 06:41 Respiratory Rate 20 09/04/19 06:41 Blood Pressure 138/80 09/04/19 06:41 O2 Sat by Pulse Oximetry (%) 09/04/19 09:54 fasting glucose pending Assessment: 09/04/19 09:54 withdrawal symptom Plan: continue detox methadone regimen
[2019-09-04] MEDS ORDERED: METHADONE HCL 10 MG TABLET (FOR DETOX USE ONLY) PO ONE (10:00)
[2019-09-04] MEDS: PRENATAL VITAMINS W/ FOLIC ACID TABLET (FP) PO SCH (10:24)
[2019-09-04] MEDS: METHOCARBAMOL 500 MG TABLET PO PRN ×2 (10:26→22:10)
[2019-09-04] MEDS: NICOTINE 14 MG/24 HOURS TOPICAL PATCH TD SCH (10:26)
[2019-09-04] MEDS: THIAMINE HCL 100 MG TABLET (FP) PO SCH (22:11)
[2019-09-05] MEDS ORDERED: METHADONE HCL 5 MG TABLET (FOR DETOX USE ONLY) ONE (09:06)
[2019-09-05] MEDS ORDERED: METHADONE HCL 10 MG TABLET (FOR DETOX USE ONLY) ONE (09:06)
[2019-09-05] MEDS ORDERED: METHADONE (DETOX) 10 MG, METHADONE (DETOX) 5 MG PO ONE (10:00)
[2019-09-05] MEDS: NICOTINE 14 MG/24 HOURS TOPICAL PATCH TD SCH (10:29)
[2019-09-05] MEDS: PRENATAL VITAMINS W/ FOLIC ACID TABLET (FP) PO SCH (10:29)
[2019-09-05] MEDS: METHOCARBAMOL 500 MG TABLET PO PRN ×2 (10:31→22:13)
--- NOTE | 2019-09-05 16:29 | PN ---
[facility] COWS - Scale Resting Pulse: 0= [place] 80 or Below Sweatin= Chills/Flushing Restless Observation: 1= Difficult to Sit Still Pupil Size: 0= Normal to Room Light Bone or Joint Aches: 2= Severe Diffuse Aches Runny Nose/ Eye Tearin= None GI Upset > 30mins: 1= Stomach Cramp Tremor Observation of Outstretched Hands: 0= None Yawning Observation: 1= 1-2x During Session Anxiety or Irritability: 2=Irritable/Anxious Goose Flesh Skin: 3=Piloerection COWS Score: 11 [facility] Progress Note (SOAP) Subjective: Chills, Body Aches, Sweating, Anxious. Objective: PATIENT A & O X 3, OBSERVED AMBULATING ON DETOX UNIT UNASSISTED. IN NO ACUTE DISTRESS. 09/05/19 16:27 Vital Signs Temperature 97.1 F L 09/05/19 09:57 Pulse Rate 70 09/05/19 09:57 Respiratory Rate 18 09/05/19 09:57 Blood Pressure 119/62 09/05/19 09:57 O2 Sat by Pulse Oximetry (%) Laboratory Tests 09/02/19 09/02/19 09/02/19 13:10 13:10 13:10 WBC 4.4 RBC 3.80 L Hgb 11.0 L Hct 33.6 L MCV 88.3 MCH 28.9 MCHC 32.7 RDW 17.0 H Plt Count 260 MPV 8.2 Sodium 139 Potassium 3.6 Chloride 106 Carbon Dioxide 30 Anion Gap 4 L BUN 15.8 Creatinine 0.7 Est GFR (CKD-EPI)AfAm 126.64 Est GFR (CKD-EPI)NonAf 109.27 Random Glucose 111 H Fasting Glucose Calcium 8.1 L Total Bilirubin 0.8 AST 22 ALT 33 Alkaline Phosphatase 94 Total Protein 6.9 Albumin 3.0 L RPR Titer Nonreactive 09/04/19 08:00 WBC RBC Hgb Hct MCV MCH MCHC RDW Plt Count MPV Sodium Potassium Chloride Carbon Dioxide Anion Gap BUN Creatinine Est GFR (CKD-EPI)AfAm Est GFR (CKD-EPI)NonAf Random Glucose Fasting Glucose 85 Calcium Total Bilirubin AST ALT Alkaline Phosphatase Total Protein Albumin RPR Titer LABS NOTED. Assessment: 09/05/19 16:28 WITHDRAWAL SYMPTOMS. ANEMIA. HYPOCALCEMIA. Plan: CONTINUE DETOX. OSCAL, 500 MG ORALLY BID. PATIENT IS CURRENTLY RECEIVING DAILY MVI CONTAINING B VITAMINS AND IRON WHILE ADMITTED FOR DETOX.
[2019-09-05] MEDS: THIAMINE HCL 100 MG TABLET (FP) PO SCH (22:12)
[2019-09-05] MEDS: CALCIUM 500MG/VIT-D 200 UNITS COMBO TABLET (FP) PO SCH (22:12)
[2019-09-06 09:17] VITALS: BP 113/75; PULSE 64; TEMP 98.4
[2019-09-06] MEDS ORDERED: METHADONE HCL 10 MG TABLET (FOR DETOX USE ONLY) PO ONE (10:00)
[2019-09-06] MEDS: PRENATAL VITAMINS W/ FOLIC ACID TABLET (FP) PO SCH (11:01)
[2019-09-06] MEDS: CALCIUM 500MG/VIT-D 200 UNITS COMBO TABLET (FP) PO SCH (11:01)
[2019-09-06] MEDS: NICOTINE 14 MG/24 HOURS TOPICAL PATCH TD SCH (11:01)
--- NOTE | 2019-09-06 13:22 | DS ---
[facility] Detox Discharge Summary Admission Date: 09/02/19 - History Present History: Alcohol Dependence, Opioid Dependence Additional Comments: Patient demanded to be discharged today stating that his brother Da Monroe is downstairs in detox and that they both came in together and wants to leave together. Patient stated is brother is being discharged today and they live at the same address. Park Worker didn't see anyone with that given name on 3rd floor and the patient then switched his story telling jingle writer that he doesn't know his brother's last name. Patient later stated that he has to go to work tomorrow and wants to leave. Park Worker explained to patient that he cannot be discharged today because he c/o withdrawal sxs: back pain, chills, interruped sleep, anxiety. Patient told jingle writer that he's not staying and wants to leave AMA. Patient demanded to leave AMA despite encouragement to complete detox. Patient instructed to call [phone] if sick/withdrawal sxs and to see his PCP within 3 days for follow up and abnormal lab results. Patient left in stable condition. - Physical Exam Results Vital Signs: Vital Signs Temperature 98.4 F 09/06/19 08:16 Pulse Rate 64 09/06/19 08:16 Respiratory Rate 18 09/06/19 08:16 Blood Pressure 113/75 09/06/19 08:16 O2 Sat by Pulse Oximetry (%) Pertinent Admission Physical Exam Findings: Withdrawal sxs Laboratory Tests 09/02/19 09/02/19 09/02/19 13:10 13:10 13:10 WBC 4.4 RBC 3.80 L Hgb 11.0 L Hct 33.6 L MCV 88.3 MCH 28.9 MCHC 32.7 RDW 17.0 H Plt Count 260 MPV 8.2 Sodium 139 Potassium 3.6 Chloride 106 Carbon Dioxide 30 Anion Gap 4 L BUN 15.8 Creatinine 0.7 Est GFR (CKD-EPI)AfAm 126.64 Est GFR (CKD-EPI)NonAf 109.27 Random Glucose 111 H Fasting Glucose Calcium 8.1 L Total Bilirubin 0.8 AST 22 ALT 33 Alkaline Phosphatase 94 Total Protein 6.9 Albumin 3.0 L RPR Titer Nonreactive 09/04/19 08:00 WBC RBC Hgb Hct MCV MCH MCHC RDW Plt Count MPV Sodium Potassium Chloride Carbon Dioxide Anion Gap BUN Creatinine Est GFR (CKD-EPI)AfAm Est GFR (CKD-EPI)NonAf Random Glucose Fasting Glucose 85 Calcium Total Bilirubin AST ALT Alkaline Phosphatase Total Protein Albumin RPR Titer Labs reviewed: anemia, mild hyperglycemia, hypocalcemia and hypoalbuminemia; instructed to see PCP within 3 days for any abnormal lab results - Medication Discharge Medications: Ambulatory Orders NK [No Known Home Medication] 09/02/19 - Diagnosis (1) Hyperglycemia Status: Acute (2) Hypoalbuminemia Status: Acute (3) Alcohol dependence with uncomplicated withdrawal Status: Acute (4) Nicotine dependence Status: Chronic Qualifiers: Nicotine product type: cigarettes Substance use status: in withdrawal Qualified Code(s): F17.213 - Nicotine dependence, cigarettes, with withdrawal (5) Opioid dependence, uncomplicated Status: Acute (6) Hypocalcemia Status: Acute - AMA Did Patient Leave Against Medical Advice: Yes (Instructed to call 911 SHREYA if sick/withdrawal sxs)
[2019-09-07] MEDS ORDERED: METHADONE HCL 5 MG TABLET (FOR DETOX USE ONLY) PO ONE (06:00)
== END 2019-09-06 10:40 | disposition left against medical advice (07) | DRG 770 ==
LOC: YASAS 10:33 → Y6N 13:26
PROVIDERS: ADMIT Allergy & Immunology; ATTEND Allergy & Immunology
PROC: HZ2ZZZZ Detoxification Services for Substance Abuse Treatment (ICD-10-PCS; principal; 2019-09-02)
DX: F10.230 Alcohol dependence with withdrawal, uncomplicated (principal); F11.20 Opioid dependence, uncomplicated; F17.213 Nicotine dependence, cigarettes, with withdrawal; F41.8 Other specified anxiety disorders; F32.9 Major depressive disorder, single episode, unspecified; E88.09 Other disorders of plasma-protein metabolism, not elsewhere classified; E83.51 Hypocalcemia; R73.9 Hyperglycemia, unspecified; D64.9 Anemia, unspecified; M25.552 Pain in left hip; Z99.89 Dependence on other enabling machines and devices; Z59.0 Homelessness
CPT/HCPCS: 36415; 80053; 82947; 85027; 86593